=== PATIENT | female | born 1935 | race Caucasian/White ===

== ENCOUNTER 2017-08-20 14:27 | Outpatient (CLI) | payer MEDICAID ==
--- NOTE | 2017-08-21 09:48 | Ultrasound Report ---
ULTRASOUND ABDOMEN COMPLETE: TECHNIQUE: Transabdominal ultrasound with color Doppler interrogation. HISTORY: Right upper quadrant pain, epigastric pain. COMPARISON: Renal ultrasound dated 12/23/14. FINDINGS: LIVER: Normal. BILIARY SYSTEM: There is a large gallstone within the gallbladder measuring up to 3.2 cm in greatest dimension. No evidence for abnormal gallbladder distention, wall thickening or surrounding fluid. The CBD measures 4 mm. PANCREAS: Normal. SPLEEN: Normal. KIDNEYS: The right kidney measures 10.0 cm. The left kidney measures 9.6 cm. Both kidneys are echogenic consistent with nonspecific renal parenchymal disease. There are a few scattered simple appearing renal cysts measuring less than 1 cm in both kidneys. No evidence for mass, calculus or hydronephrosis. These findings are essentially unchanged since the previous renal ultrasound. AORTA/IVC: Normal. ASCITES: None. IMPRESSION: Large gallstone. No evidence for acute cholecystitis. Nonspecific renal parenchymal disease. Scattered subcentimeter simple renal cysts.
== END 2017-08-20 14:28 | disposition home or self-care (01) ==
LOC: US 14:27
PROVIDERS: ATTEND Nurse Practitioner
DX: K80.20 Calculus of gallbladder without cholecystitis without obstruction (principal); N28.1 Cyst of kidney, acquired
CPT/HCPCS: 76700

== ENCOUNTER 2017-09-13 09:41 | Outpatient (CLI) | payer MEDICAID ==
[2017-09-13 10:01] LABS: Hematocrit 27.7 % (30.3-42.9); Hemoglobin 9.2 gm/dl (10.1-14.3); Mean Corpuscular HGB Conc 33 % (30-34); Mean Corpuscular Hemoglobin 30 pg (28-32); Mean Corpuscular Volume 90 fl (79-97); Platelet Count 285 K/mm3 (140-440); Red Blood Count 3.09 M/mm3 (3.65-5.03); Red Cell Distribution Width 15.8 % (13.2-15.2)
[2017-09-13 10:14] LABS: Calcium 8.3 mg/dL (8.4-10.2)
== END 2017-09-13 09:42 | disposition home or self-care (01) ==
LOC: LAB 09:41
PROVIDERS: ATTEND Internal Medicine Nephrology
DX: I13.0 Hypertensive heart and chronic kidney disease with heart failure and stage 1 through stage 4 chronic kidney disease, or unspecified chronic kidney disease (principal); I50.9 Heart failure, unspecified; N18.3 Chronic kidney disease, stage 3 (moderate); E11.22 Type 2 diabetes mellitus with diabetic chronic kidney disease; E78.00 Pure hypercholesterolemia, unspecified; I25.10 Atherosclerotic heart disease of native coronary artery without angina pectoris
CPT/HCPCS: 36415; 80048; 85027

== ENCOUNTER 2017-09-13 12:58 | Inpatient (IN) | payer MEDICAID ==
--- NOTE | 2017-09-13 16:12 | History and Physical Report ---
History of Present Illness Date of admission: 09/13/17 13:40 Chief complaint: My doctor told me to come here History of present illness: 82 YO Female with Anemia, CKD, DM, HTN, HLD, TIA admitted directly at the request of Dr. Sylvester. Pt was seen and evaluated today in Dr. Sylvester's office and was found to have evidence of ESRD and in need of permacath placement for dialysis. Pt medically stable, and does not require urgent dialysis as per Dr. Sylvester. Pt will be seen by vascular service for elective permacath placement in am. Pt seen and evaluated upon arrival. Pt complains of chronic bue/ble swelling. Pt denies fever, chills, CP, Palpitations, NVD, unintentional weigh loss, night sweats, NVD, skin rash, confusion, falls, trauma, or recent ill contacts. No reported nursing events. Pt sitting in chair in NAD. 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 Plan of care discussed with patient and family , who agree with care plan. Past History Past Medical History: anemia, CAD, diabetes, hypertension, hyperlipidemia Past Surgical History: hysterectomy, hernia repair Social history: , lives with family. denies: smoking, alcohol abuse, prescription drug abuse Family history: diabetes, hypertension Medications and Allergies Allergies Allergy/AdvReac Type Severity Reaction Status Date / Time No Known Allergies Allergy Verified 10/10/14 21:27 Home Medications Medication Instructions Recorded Confirmed Last Taken Type Glimepiride [Amaryl] 4 mg PO 0800 08/22/17 09/13/17 08/22/17 09:00 History Aspirin [Aspirin TAB] 325 mg PO QDAY #30 tablet 09/11/17 09/13/17 Unknown Rx Famotidine [Pepcid] 20 mg PO QDAY #30 tablet 09/11/17 09/13/17 Unknown Rx Metoprolol [Lopressor TAB] 12.5 mg PO BID #60 tablet 09/11/17 09/13/17 Unknown Rx Pravastatin [Pravachol] 40 mg PO QHS #30 tablet 09/11/17 09/13/17 Unknown Rx amLODIPine [Norvasc] 10 mg PO QDAY #30 tablet 09/11/17 09/13/17 Unknown Rx hydrALAZINE [Apresoline TAB] 50 mg PO Q8HR #90 tablet 09/11/17 09/13/17 Unknown Rx traMADol [Ultram 50 MG tab] 50 mg PO Q8H PRN #14 tablet 09/11/17 09/13/17 Unknown Rx Review of Systems Constitutional: other (swelling) Ears, nose, mouth and throat: no ear pain, no ear discharge, no tinnitis, no decreased hearing, no nose pain Breasts: no change in shape, no swelling, no mass Cardiovascular: no chest pain, no orthopnea, no palpitations, no rapid/ irregular heart beat, no edema Respiratory: no cough, no cough with sputum, no excessive sputum, no hemoptysis Gastrointestinal: no nausea, no vomiting, no diarrhea, no constipation, no change in bowel habits Genitourinary Female: no pelvic pain, no flank pain, no dysuria Rectal: no pain, no incontinence, no bleeding Musculoskeletal: no neck stiffness, no neck pain, no shooting arm pain, no arm numbness/tingling, no low back pain Integumentary: no rash, no pruritis, no redness, no sores, no wounds, no boils Neurological: no head injury, no transient paralysis, no paralysis, no weakness , no parathesias, no numbness, no tingling, no seizures Psychiatric: no anxiety, no memory loss, no change in sleep habits, no sleep disturbances, no insomnia, no hypersomnia, no change in appetite Endocrine: no cold intolerance, no heat intolerance, no polyphagia, no excessive thirst, no polydipsia, no polyuria Hematologic/Lymphatic: no easy bruising, no easy bleeding, no lymphadenopathy, no lymphedema Allergic/Immunologic: no urticaria, no allergic rhinitis, no wheezing, no persistent infections, no anaphylaxis Exam - Constitutional General appearance: Present: no acute distress, well-nourished - EENT Eyes: Present: PERRL ENT: hearing intact, clear oral mucosa - Neck Neck: Present: supple, normal ROM - Respiratory Respiratory effort: normal Respiratory: bilateral: diminished - Cardiovascular Heart Sounds: Present: S1 & S2. Absent: rub, click - Extremities Extremities: pulses symmetrical, No edema Extremity abnormal: edema Peripheral Pulses: within normal limits - Abdominal General gastrointestinal: Present: soft, non-tender, non-distended, normal bowel sounds Female genitourinary: Present: normal - Integumentary Integumentary: Present: clear, warm, dry - Musculoskeletal Musculoskeletal: gait normal, strength equal bilaterally - Psychiatric Psychiatric: appropriate mood/affect, intact judgment & insight - Neurologic Neurologic: CNII-XII intact, moves all extremities Assessment and Plan - Patient Problems (1) ESRD (end stage renal disease) Current Visit: Yes Status: Acute Plan to address problem: Nephrology consulted. Notify nephrology upon arrival, cbc, cmp, vascular surgery consulted, Permacath placement in AM. (2) Diabetes Current Visit: Yes Status: Acute Plan to address problem: consistent carbohydrate diet, insulin, accu check (3) Metabolic acidosis Current Visit: Yes Status: Acute Plan to address problem: secondary to ESRD, dialysis as per renal team, repeat bmp (4) HTN (hypertension) Current Visit: Yes Status: Acute Qualifiers: Hypertension type: essential hypertension Qualified Code(s): I10 - Essential (primary) hypertension Plan to address problem: monitor bp q shift, resume prehospital medication, hold b breana. (5) DVT prophylaxis Current Visit: Yes Status: Acute Plan to address problem: scd to ble while in bed.
[2017-09-13] MEDS ORDERED: ULTRAM PO PRN (20:42)
[2017-09-13] MEDS ORDERED: D50W (25GM) Syringe IV PRN (20:43)
[2017-09-13 20:59] LABS: Basophils # (Auto) 0.1 K/mm3 (0.0-0.1); Basophils % (Auto) 1.1 % (0.0-1.8); Eosinophils # (Auto) 0.1 K/mm3 (0.0-0.4); Eosinophils % (Auto) 1.5 % (0.0-4.3); Hematocrit 28.5 % (30.3-42.9); Hemoglobin 9.4 gm/dl (10.1-14.3); Lymphocytes # (Auto) 0.7 K/mm3 (1.2-5.4); Lymphocytes % (Auto) 15.2 % (13.4-35.0); Mean Corpuscular HGB Conc 33 % (30-34); Mean Corpuscular Hemoglobin 29 pg (28-32); Mean Corpuscular Volume 89 fl (79-97); Monocytes # (Auto) 0.5 K/mm3 (0.0-0.8); Monocytes % (Auto) 10.1 % (0.0-7.3); Platelet Count 298 K/mm3 (140-440); Red Blood Count 3.19 M/mm3 (3.65-5.03); Red Cell Distribution Width 15.6 % (13.2-15.2)
[2017-09-13 21:07] LABS: INR 0.97 (0.87-1.13)
--- NOTE | 2017-09-13 21:07 | XRay Report ---
FINAL REPORT EXAM: XR CHEST 1V AP HISTORY: dypsnea TECHNIQUE: Upright portable chest PRIORS: None. FINDINGS: Positioning is rotated. There are moderate pleural effusions bilaterally. The right central venous catheter seen previously is been removed. There is no evidence for pneumothorax. Pulmonary vasculature is unremarkable. IMPRESSION: Persistent bilateral moderate effusions not significantly changed. Right IJ catheter is been removed
[2017-09-13 21:22] LABS: Albumin 3.3 g/dL (3.9-5); BUN/Creatinine Ratio 16; Blood Urea Nitrogen 70 mg/dL (7-17); Calcium 8.2 mg/dL (8.4-10.2); Hemolysis Index 7
[2017-09-13 21:27] LABS: Alanine Aminotransferase < 5 units/L (7-56)
[2017-09-13] MEDS: APRESOLINE PO SCH (22:19)
[2017-09-13] MEDS: PRAVACHOL PO SCH (22:19)
[2017-09-14] MEDS: HumaLOG SUB-Q SCH ×3 (00:45→20:58)
[2017-09-14] MEDS: APRESOLINE PO SCH ×2 (05:27→20:58)
[2017-09-14] MEDS ORDERED: VERSED ONE (09:46)
[2017-09-14] MEDS ORDERED: HEPARIN/NS 5000 UNIT/500ML(CATH LAB) 500 ML IR ONE (09:46)
[2017-09-14] MEDS ORDERED: ANCEF/STERILE WATER 2 GM/20 ML 2 GM/20 ML SYRINGE IV ONE (09:47)
[2017-09-14] MEDS ORDERED: XYLOCAINE 2% INFILTRATI ONE (09:47)
[2017-09-14] MEDS ORDERED: SUBLIMAZE ONE (09:47)
[2017-09-14] MEDS ORDERED: NACL 0.9% 250ML 250 ML ONE (09:47)
[2017-09-14] MEDS: HEPARIN 10,000 UNITS/10 ML ONE ×4 (10:18→10:26)
--- NOTE | 2017-09-14 11:18 | Post Operative Note ---
Date of procedure: 09/14/17 Pre-op diagnosis: ESRD Post-op diagnosis: same Findings: patient was asymptomatic but bradycardic prior to procedure patient is asymptomatic and bradycardic after procedure Procedure: Right sided permcath placement Anesthesia: local Surgeon: DANIEL ESPINOSA Estimated blood loss: minimal Condition: stable Disposition: floor
--- NOTE | 2017-09-14 11:18 | Operative Report ---
Operative Report Operative Report: EXAM: 1. Ultrasound-guided puncture of the right internal jugular vein 2. Fluoroscopic-guided placement of a right internal jugular tunneled cuffed hemodialysis catheter. DATE: 09/14/17 INDICATION: End-stage renal disease requiring hemodialysis access MEDICATIONS: Please see nursing report for full details. DEVICES: 27 cm tip to cuff 15 Fr dual lumen hemodialysis catheter CIVIL SERVICE WORKER: DANIEL ESPINOSA MD CONTRAST: None PROCEDURE: The risks, benefits, and alternatives were discussed and informed consent was obtained. The patient was transported to the angiography suite in satisfactory/ stable condition and was transported onto the angiography table. The patient's right internal jugular vein was assessed with ultrasound and determined to be patent prior to procedure. The patient was prepped and draped in a sterile fashion. The puncture site was anesthetized. Under sonographic guidance, the right internal jugular vein was punctured with a 21-gauge micropuncture needle and a 0.018 inch wire was advanced into the inferior vena cava. The micropuncture needle was exchanged for a transitional dilator and the wire was retracted into the right atrium to matilde intravascular distance. The wire and inner dilator were removed. 0.035 inch wire was advanced through the transitional dilator into the inferior vena cava. A suitable exit site was identified on the patient's chest inferior and lateral to the venotomy. The site was anesthetized with local anesthetic and the track was anesthetized. Dermatotomy was made. The PermCath was attached to the tunneling device and tunneled between the dermatotomy to the venotomy. Over the 0.035 inch wire, serial dilatation was performed with ultimate placement of a peel-away sheath. The catheter was advanced through the peel- away sheath after the wire was removed and positioned centrally under fluoroscopic guidance. The peel-away sheath was removed. 4-0 Vicryl suture was used to close the venotomy and Dermabond was then applied. Two, 2-0 Ethilon suture was used to secure the catheter at the dermatotomy. The catheter was charged with heparin 1000 units/mL space. Sterile dressing and Biopatch applied. The patient was transferred from the angiography suite back to the floor in stable condition. FINDINGS: 1. Excellent flow was obtained through the dialysis catheter with 20 mL syringes. 2. The catheter tip is in the right atrium. IMPRESSION: 1. Successful ultrasound and fluoroscopically guided placement of a right internal jugular tunneled cuffed hemodialysis catheter.
[2017-09-14] MEDS ORDERED: NACL 0.9% 100 ML IV PRN (11:56)
[2017-09-14] MEDS ORDERED: ALBURX 25% (ALBUMIN) IV PRN (11:56)
--- NOTE | 2017-09-14 12:00 | Progress Note ---
Assessment and Plan Impression: * ESRD * Uremia * HTN * DM * ANemia in ESRD Plan: * HD today and q mwf * outpatient hd krystin nybenjamin * daily lytes * strict i/os * renal diet * uf as tolerated with hd Subjective Date of service: 09/14/17 Principal diagnosis: esrd Interval history: events noted, no acute issues today Objective - Exam Narrative Exam: Constitutional General appearance: Present: no acute distress, well-nourished - EENT Eyes: Present: PERRL ENT: hearing intact, clear oral mucosa - Neck Neck: Present: supple, normal ROM - Respiratory Respiratory effort: normal Respiratory: bilateral: diminished - Cardiovascular Heart Sounds: Present: S1 & S2. Absent: rub, click - Extremities Extremities: pulses symmetrical, No edema Extremity abnormal: edema Peripheral Pulses: within normal limits - Abdominal General gastrointestinal: Present: soft, non-tender, non-distended, normal bowel sounds Female genitourinary: Present: normal - Integumentary Integumentary: Present: clear, warm, dry - Musculoskeletal Musculoskeletal: gait normal, strength equal bilaterally - Psychiatric Psychiatric: appropriate mood/affect, intact judgment & insight - Neurologic Neurologic: CNII-XII intact, moves all extremities - Vital Signs Vital signs: Vital Signs - 12hr 09/14/17 09/14/17 09/14/17 00:00 00:36 04:22 Temperature 98.2 F Pulse Rate 42 L 43 L 42 L Respiratory 20 Rate Blood Pressure 131/57 Blood Pressure 152/59 [Left] O2 Sat by Pulse 98 97 Oximetry 09/14/17 09/14/17 05:13 07:42 Temperature 97.6 F 97.6 F Pulse Rate 42 L 44 L Respiratory 18 18 Rate Blood Pressure Blood Pressure 131/57 137/56 [Left] O2 Sat by Pulse 97 97 Oximetry - Lab 09/13/17 20:38 09/13/17 20:42 Most recent lab results Calcium 8.2 mg/dL (8.4-10.2) L 09/13/17 20:42
[2017-09-14 13:56] LABS: Hepatitis A Antibody IgM Non-Reactive (NonReactive); Hepatitis B Core IgM Non-Reactive (NonReactive); Hepatitis B Surface Antigen Non-Reactive (Negative); Hepatitis C Virus Antibody Non-Reactive (NonReactive)
--- NOTE | 2017-09-14 14:25 | Consultation ---
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 She is right-handed. She will require hemodialysis and is not a candidate for peritoneal dialysis to her advanced age. Past History Past Medical History: anemia, CAD, diabetes, hypertension, hyperlipidemia Past Surgical History: hysterectomy, hernia repair Social history: , lives with family. denies: smoking, alcohol abuse, prescription drug abuse Family history: diabetes, hypertension Medications and Allergies Allergies Allergy/AdvReac Type Severity Reaction Status Date / Time No Known Allergies Allergy Verified 10/10/14 21:27 Home Medications Medication Instructions Recorded Confirmed Last Taken Type Glimepiride [Amaryl] 4 mg PO 0800 08/22/17 09/13/17 08/22/17 09:00 History Aspirin [Aspirin TAB] 325 mg PO QDAY #30 tablet 09/11/17 09/13/17 Unknown Rx Famotidine [Pepcid] 20 mg PO QDAY #30 tablet 09/11/17 09/13/17 Unknown Rx Metoprolol [Lopressor TAB] 12.5 mg PO BID #60 tablet 09/11/17 09/13/17 Unknown Rx Pravastatin [Pravachol] 40 mg PO QHS #30 tablet 09/11/17 09/13/17 Unknown Rx amLODIPine [Norvasc] 10 mg PO QDAY #30 tablet 09/11/17 09/13/17 Unknown Rx hydrALAZINE [Apresoline TAB] 50 mg PO Q8HR #90 tablet 09/11/17 09/13/17 Unknown Rx traMADol [Ultram 50 MG tab] 50 mg PO Q8H PRN #14 tablet 09/11/17 09/13/17 Unknown Rx Active Meds: Active Medications Albumin Human (Alburx 25% (Albumin)) 25 gm IV MICHELE PRN PRN Reason: Hypotension Amlodipine Besylate (Norvasc) 10 mg PO QDAY DARSHANA Aspirin (Aspirin) 325 mg PO QDAY [facility] Dextrose (D50w (25gm) Syringe) 50 ml IV PRN PRN PRN Reason: Hypoglycemia Epoetin Abdirahman (Procrit) 10,000 unit IV MICHELE PRN PRN Reason: hemodialysis Famotidine (Pepcid) 20 mg PO QDAY [facility] Heparin Sodium (Porcine) (Heparin) 5,000 unit IV MICHELE PRN PRN Reason: hemodialysis Hydralazine HCl (Apresoline) 50 mg PO Q8HR [facility] Last Admin: 09/14/17 05:27 Dose: 50 mg Sodium Chloride (Nacl 0.9%) 100 mls @ 999 mls/hr IV IMCHELE PRN PRN Reason: Hypotension Insulin Human Lispro (Humalog) 0 unit SUB-Q Q6HR [facility]; Protocol Last Admin: 09/14/17 07:11 Dose: Not Given Pravastatin Sodium (Pravachol) 40 mg PO QHS [facility] Last Admin: 09/13/17 22:19 Dose: 40 mg Tramadol HCl (Ultram) 50 mg PO Q8H PRN PRN Reason: Pain, Moderate (4-6) Review of Systems All systems: negative (see HPI ; discussed with family at bedside) Exam - Constitutional Vitals: Temp Pulse Resp BP Pulse Ox 97.8 F 43 L 20 140/54 93 09/14/17 11:06 09/14/17 11:07 09/14/17 12:23 09/14/17 11:06 09/14/17 11:07 General appearance: Present: no acute distress, other (sleeping) - EENT Eyes: Present: EOM intact ENT: hearing intact - Respiratory Respiratory effort: normal - Cardiovascular Rhythm: other (bradycardia) - Psychiatric Psychiatric: other (sleeping) Results - Labs CBC & Chem 7: 09/13/17 20:38 09/13/17 20:42 Labs: Abnormal lab results 09/13/17 09/13/17 09/13/17 Range/Units 16:40 20:38 20:42 RBC 3.19 L (3.65-5.03) M/mm3 Hgb 9.4 L (10.1-14.3) gm/dl Hct 28.5 L (30.3-42.9) % RDW 15.6 H (13.2-15.2) % [place] % (Auto) 10.1 H (0.0-7.3) % Lymph # 0.7 L (1.2-5.4) K/mm3 Seg Neutrophils % 72.1 H (40.0-70.0) % Sodium 131 L (137-145) mmol/L Chloride 95.6 L (98-107) mmol/L Carbon Dioxide 19 L (22-30) mmol/L BUN 70 H (7-17) mg/dL Creatinine 4.5 H (0.7-1.2) mg/dL Glucose 183 H (65-100) mg/dL POC Glucose 169 H (70-105) Calcium 8.2 L (8.4-10.2) mg/dL ALT < 5 L (7-56) units/L Albumin 3.3 L (3.9-5) g/dL 09/13/17 09/14/17 09/14/17 Range/Units 21:22 00:15 06:56 RBC (3.65-5.03) M/mm3 Hgb (10.1-14.3) gm/dl Hct (30.3-42.9) % RDW (13.2-15.2) % [place] % (Auto) (0.0-7.3) % Lymph # (1.2-5.4) K/mm3 Seg Neutrophils % (40.0-70.0) % Sodium (137-145) mmol/L Chloride (98-107) mmol/L Carbon Dioxide (22-30) mmol/L BUN (7-17) mg/dL Creatinine (0.7-1.2) mg/dL Glucose (65-100) mg/dL POC Glucose 180 H 169 H 119 H (70-105) Calcium (8.4-10.2) mg/dL ALT (7-56) units/L Albumin (3.9-5) g/dL Assessment and Plan 82-year-old female who was previously seen by vascular surgery for 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 Discussed with the family that due to her advanced age would probably recommend a graft over a fistula. Discussed vein mapping with the family. Patient will require PermCath placement. Risks, benefits, and alternatives discussed with the family, especially the patient's daughter who is making most of her medical decisions for her. Plan for vein mapping, and PermCath placement. Can follow-up as outpatient with [facility].
[2017-09-14] MEDS ORDERED: NACL 0.9 (PRIMING MACHINE ONLY DIALYSIS) MC ONE (18:08)
[2017-09-14] MEDS: PROCRIT IV PRN (18:45)
[2017-09-14] MEDS: HEPARIN IV PRN (19:37)
[2017-09-14] MEDS: PRAVACHOL PO SCH (21:51)
[2017-09-14] MEDS: PEPCID PO SCH (21:52)
[2017-09-14] MEDS: NORVASC PO SCH (21:52)
[2017-09-14] MEDS: ASPIRIN PO SCH (21:56)
--- NOTE | 2017-09-14 22:47 | Progress Note ---
Assessment and Plan Assessment and plan: 82 YO Female with Anemia, CKD, DM, HTN, HLD, TIA admitted directly at the request of Dr. Sylvester. Pt was seen and evaluated today in Dr. Sylvester's office and was found to have evidence of ESRD and in need of permacath placement for dialysis. Pt medically stable, and does not require urgent dialysis as per Dr. Sylvester. Pt will be seen by vascular service for elective permacath placement in am. Pt seen and evaluated upon arrival. Pt complains of chronic bue/ble swelling. Pt denies fever, chills, CP, Palpitations, NVD, unintentional weigh loss, night sweats, NVD, skin rash, confusion, falls, trauma, or recent ill contacts. No reported nursing events. Pt sitting in chair in NAD. 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 Plan of care discussed with patient and family , who agree with care plan. (1) ESRD (end stage renal disease) Current Visit: Yes Status: Acute Plan to address problem: Nephrology consulted. Notify nephrology upon arrival, cbc, cmp, vascular surgery consulted, Permacath placement in AM. Vein Maping for am. (2) Diabetes Current Visit: Yes Status: Acute Plan to address problem: consistent carbohydrate diet, insulin, accu check (3) Metabolic acidosis Current Visit: Yes Status: Acute Plan to address problem: secondary to ESRD, dialysis as per renal team, repeat bmp (4) HTN (hypertension) Current Visit: Yes Status: Acute Qualifiers: Hypertension type: essential hypertension Qualified Code(s): I10 - Essential (primary) hypertension Plan to address problem: monitor bp q shift, resume prehospital medication, hold b breana. (5) DVT prophylaxis Current Visit: Yes Status: Acute Plan to address problem: scd to ble while in bed. History Interval history: Patient seen and examined in no acute distress. family at bedside. Hospitalist Physical - Physical exam Narrative exam: - Constitutional General appearance: Present: no acute distress, well-nourished - EENT Eyes: Present: PERRL ENT: hearing intact, clear oral mucosa - Neck Neck: Present: supple, normal ROM - Respiratory Respiratory effort: normal Respiratory: bilateral: diminished - Cardiovascular Heart Sounds: Present: S1 & S2. Absent: rub, click - Extremities Extremities: pulses symmetrical, No edema Extremity abnormal: edema-Right > Left Peripheral Pulses: within normal limits - Abdominal General gastrointestinal: Present: soft, non-tender, non-distended, normal bowel sounds Female genitourinary: Present: normal - Integumentary Integumentary: Present: clear, warm, dry - Musculoskeletal Musculoskeletal: gait normal, strength equal bilaterally - Psychiatric Psychiatric: appropriate mood/affect, intact judgment & insight - Neurologic Neurologic: CNII-XII intact, moves all extremities - Constitutional Vitals: Temp Pulse Resp BP Pulse Ox 98.0 F 55 L 20 154/51 94 09/14/17 19:15 09/14/17 21:07 09/14/17 21:07 09/14/17 21:07 09/14/17 21:07 General appearance: Present: no acute distress, other (sleeping) Results - Labs CBC & Chem 7: 09/13/17 20:38 09/13/17 20:42 Labs: Laboratory Last Values WBC 4.5 K/mm3 (4.5-11.0) 09/13/17 20:38 RBC 3.19 M/mm3 (3.65-5.03) L 09/13/17 20:38 Hgb 9.4 gm/dl (10.1-14.3) L 09/13/17 20:38 Hct 28.5 % (30.3-42.9) L 09/13/17 20:38 MCV 89 fl (79-97) 09/13/17 20:38 MCH 29 pg (28-32) 09/13/17 20:38 MCHC 33 % (30-34) 09/13/17 20:38 RDW 15.6 % (13.2-15.2) H 09/13/17 20:38 Plt Count 298 K/mm3 (140-440) 09/13/17 20:38 Lymph % (Auto) 15.2 % (13.4-35.0) 09/13/17 20:38 [place] % (Auto) 10.1 % (0.0-7.3) H 09/13/17 20:38 Eos % (Auto) 1.5 % (0.0-4.3) 09/13/17 20:38 Baso % (Auto) 1.1 % (0.0-1.8) 09/13/17 20:38 Lymph # 0.7 K/mm3 (1.2-5.4) L 09/13/17 20:38 [place] # 0.5 K/mm3 (0.0-0.8) 09/13/17 20:38 Eos # 0.1 K/mm3 (0.0-0.4) 09/13/17 20:38 Baso # 0.1 K/mm3 (0.0-0.1) 09/13/17 20:38 Seg Neutrophils % 72.1 % (40.0-70.0) H 09/13/17 20:38 Seg Neutrophils # 3.3 K/mm3 (1.8-7.7) 09/13/17 20:38 PT 13.4 Sec. (12.2-14.9) 09/13/17 20:42 INR 0.97 (0.87-1.13) 09/13/17 20:42 Sodium 131 mmol/L (137-145) L 09/13/17 20:42 Potassium 4.6 mmol/L (3.6-5.0) 09/13/17 20:42 Chloride 95.6 mmol/L (98-107) L 09/13/17 20:42 Carbon Dioxide 19 mmol/L (22-30) L 09/13/17 20:42 Anion Gap 21 mmol/L 09/13/17 20:42 BUN 70 mg/dL (7-17) H 09/13/17 20:42 Creatinine 4.5 mg/dL (0.7-1.2) H 09/13/17 20:42 Estimated GFR 9 ml/min 09/13/17 20:42 BUN/Creatinine Ratio 16 % 09/13/17 20:42 Glucose 183 mg/dL (65-100) H 09/13/17 20:42 POC Glucose 154 (70-105) H 09/14/17 22:30 Calcium 8.2 mg/dL (8.4-10.2) L 09/13/17 20:42 Total Bilirubin 0.30 mg/dL (0.1-1.2) 09/13/17 20:42 AST 20 units/L (5-40) 09/13/17 20:42 ALT < 5 units/L (7-56) L 09/13/17 20:42 Alkaline Phosphatase 78 units/L (35-129) 09/13/17 20:42 Total Protein 6.4 g/dL (6.3-8.2) 09/13/17 20:42 Albumin 3.3 g/dL (3.9-5) L 09/13/17 20:42 Albumin/Globulin Ratio 1.1 % 09/13/17 20:42 Hepatitis A IgM Ab Non-reactive (NonReactive) 09/14/17 12:39 Hep Bs Antigen Non-reactive (Negative) 09/14/17 12:39 Hep B Core IgM Ab Non-reactive (NonReactive) 09/14/17 12:39 Hepatitis C Antibody Non-reactive (NonReactive) 09/14/17 12:39
[2017-09-15] MEDS: APRESOLINE PO SCH ×4 (00:57→22:03)
[2017-09-15] MEDS: HumaLOG SUB-Q SCH ×3 (00:57→20:57)
[2017-09-15 06:55] LABS: Hematocrit 24.3 % (30.3-42.9); Hemoglobin 8.2 gm/dl (10.1-14.3); Mean Corpuscular HGB Conc 34 % (30-34); Mean Corpuscular Hemoglobin 30 pg (28-32); Mean Corpuscular Volume 88 fl (79-97); Platelet Count 214 K/mm3 (140-440); Red Blood Count 2.76 M/mm3 (3.65-5.03); Red Cell Distribution Width 15.1 % (13.2-15.2)
[2017-09-15 07:09] LABS: Calcium 7.8 mg/dL (8.4-10.2)
--- NOTE | 2017-09-15 08:34 | Progress Note ---
Assessment and Plan Impression: * ESRD * Uremia * HTN * DM * ANemia in ESRD Plan: * HD today and q mwf * outpatient hd joryangelica kaylynn * daily lytes * strict i/os * renal diet * uf as tolerated with hd Subjective Date of service: 09/15/17 Principal diagnosis: esrd Interval history: events noted, no acute issues today Objective - Exam Narrative Exam: Constitutional General appearance: Present: no acute distress, well-nourished - EENT Eyes: Present: PERRL ENT: hearing intact, clear oral mucosa - Neck Neck: Present: supple, normal ROM - Respiratory Respiratory effort: normal Respiratory: bilateral: diminished - Cardiovascular Heart Sounds: Present: S1 & S2. Absent: rub, click - Extremities Extremities: pulses symmetrical, No edema Extremity abnormal: edema Peripheral Pulses: within normal limits - Abdominal General gastrointestinal: Present: soft, non-tender, non-distended, normal bowel sounds Female genitourinary: Present: normal - Integumentary Integumentary: Present: clear, warm, dry - Musculoskeletal Musculoskeletal: gait normal, strength equal bilaterally - Psychiatric Psychiatric: appropriate mood/affect, intact judgment & insight - Neurologic Neurologic: CNII-XII intact, moves all extremities - Vital Signs Vital signs: Vital Signs - 12hr 09/14/17 09/14/17 09/15/17 21:07 22:00 00:00 Pulse Rate 55 L 57 L Respiratory 20 18 Rate Blood Pressure 154/51 O2 Sat by Pulse 94 Oximetry 09/15/17 09/15/17 00:44 04:57 Pulse Rate 51 L 50 L Respiratory 20 20 Rate Blood Pressure 139/51 146/50 O2 Sat by Pulse 90 93 Oximetry - Lab 09/15/17 05:37 09/15/17 05:43 Most recent lab results Calcium 7.8 mg/dL (8.4-10.2) L 09/15/17 05:43
[2017-09-15] MEDS: ASPIRIN PO SCH (09:54)
[2017-09-15] MEDS: NORVASC PO SCH (09:54)
[2017-09-15] MEDS: PEPCID PO SCH (09:55)
--- NOTE | 2017-09-15 12:32 | Progress Note ---
Assessment and Plan - Patient Problems (1) Diabetes Current Visit: Yes Status: Acute Qualifiers: Diabetes mellitus type: type 1 Diabetic retinopathy severity: with mild nonproliferative retinopathy Plan to address problem: Maintains adequate control of blood glucose Accu-Cheks 98-169 stable (2) ESRD (end stage renal disease) Current Visit: Yes Status: Acute Plan to address problem: Is stage renal disease patient will require hemodialysis. Unable to place a permacath today. Spoke to nephrology Dr. Louis and no untoward events identified the size of the clot. Patient will receive hemodialysis will make attempts at TPA for correction of occlusion. (3) HTN (hypertension) Current Visit: Yes Status: Acute Qualifiers: Hypertension type: essential hypertension Qualified Code(s): I10 - Essential (primary) hypertension Plan to address problem: At present fairly well controlled with amlodipine. Continue present management. (4) Acute kidney injury superimposed on CKD Current Visit: No Status: Acute (5) Anemia Current Visit: No Status: Acute Plan to address problem: Anemia of chronic disease. (6) HTN (hypertension) Current Visit: No Status: Chronic Qualifiers: Hypertension type: essential hypertension Qualified Code(s): I10 - Essential (primary) hypertension History Interval history: Patient family at bedside and all questions and concerns answered. Hospital course complicated by an acute DVT and hematoma right arm. This was identified during venous mapping. Pain and discomfort well controlled. Hospitalist Physical - Constitutional Vitals: Temp Pulse Resp BP Pulse Ox 98.7 F 54 L 20 136/52 93 09/15/17 07:56 09/15/17 09:54 09/15/17 07:56 09/15/17 09:54 09/15/17 07:56 General appearance: Present: no acute distress, other (sleeping) - EENT Eyes: Present: PERRL, EOM intact - Neck Neck: Present: supple, normal ROM - Respiratory Respiratory: bilateral: CTA - Cardiovascular Rhythm: regular Heart Sounds: Present: S1 & S2 - Extremities Extremities: Full ROM Extremity abnormal: edema, pulses diminished, other (edema right arm swelling hematoma right arm) Peripheral Pulses: within normal limits - Abdominal General gastrointestinal: soft, non-tender, non-distended - Psychiatric Psychiatric: appropriate mood/affect, cooperative - Neurologic Neurologic: CNII-XII intact Results - Labs CBC & Chem 7: 09/15/17 05:37 09/15/17 05:43 Labs: Laboratory Last Values WBC 4.5 K/mm3 (4.5-11.0) 09/15/17 05:37 RBC 2.76 M/mm3 (3.65-5.03) L 09/15/17 05:37 Hgb 8.2 gm/dl (10.1-14.3) L 09/15/17 05:37 Hct 24.3 % (30.3-42.9) L 09/15/17 05:37 MCV 88 fl (79-97) 09/15/17 05:37 MCH 30 pg (28-32) 09/15/17 05:37 MCHC 34 % (30-34) 09/15/17 05:37 RDW 15.1 % (13.2-15.2) 09/15/17 05:37 Plt Count 214 K/mm3 (140-440) 09/15/17 05:37 Lymph % (Auto) 15.2 % (13.4-35.0) 09/13/17 20:38 [place] % (Auto) 10.1 % (0.0-7.3) H 09/13/17 20:38 Eos % (Auto) 1.5 % (0.0-4.3) 09/13/17 20:38 Baso % (Auto) 1.1 % (0.0-1.8) 09/13/17 20:38 Lymph # 0.7 K/mm3 (1.2-5.4) L 09/13/17 20:38 [place] # 0.5 K/mm3 (0.0-0.8) 09/13/17 20:38 Eos # 0.1 K/mm3 (0.0-0.4) 09/13/17 20:38 Baso # 0.1 K/mm3 (0.0-0.1) 09/13/17 20:38 Seg Neutrophils % 72.1 % (40.0-70.0) H 09/13/17 20:38 Seg Neutrophils # 3.3 K/mm3 (1.8-7.7) 09/13/17 20:38 PT 13.4 Sec. (12.2-14.9) 09/13/17 20:42 INR 0.97 (0.87-1.13) 09/13/17 20:42 Sodium 131 mmol/L (137-145) L 09/15/17 05:43 Potassium 3.6 mmol/L (3.6-5.0) D 09/15/17 05:43 Chloride 97.0 mmol/L (98-107) L 09/15/17 05:43 Carbon Dioxide 24 mmol/L (22-30) 09/15/17 05:43 Anion Gap 14 mmol/L 09/15/17 05:43 BUN 34 mg/dL (7-17) H 09/15/17 05:43 Creatinine 3.0 mg/dL (0.7-1.2) H 09/15/17 05:43 Estimated GFR 15 ml/min 09/15/17 05:43 BUN/Creatinine Ratio 11 % 09/15/17 05:43 Glucose 116 mg/dL (65-100) H 09/15/17 05:43 POC Glucose 117 (70-105) H 09/15/17 06:33 Calcium 7.8 mg/dL (8.4-10.2) L 09/15/17 05:43 Total Bilirubin 0.30 mg/dL (0.1-1.2) 09/13/17 20:42 AST 20 units/L (5-40) 09/13/17 20:42 ALT < 5 units/L (7-56) L 09/13/17 20:42 Alkaline Phosphatase 78 units/L (35-129) 09/13/17 20:42 Total Protein 6.4 g/dL (6.3-8.2) 09/13/17 20:42 Albumin 3.3 g/dL (3.9-5) L 09/13/17 20:42 Albumin/Globulin Ratio 1.1 % 09/13/17 20:42 Hepatitis A IgM Ab Non-reactive (NonReactive) 09/14/17 12:39 Hep Bs Antigen Non-reactive (Negative) 09/14/17 12:39 Hep B Core IgM Ab Non-reactive (NonReactive) 09/14/17 12:39 Hepatitis C Antibody Non-reactive (NonReactive) 09/14/17 12:39
[2017-09-15] MEDS ORDERED: NACL 0.9 (PRIMING MACHINE ONLY DIALYSIS) MC ONE (15:43)
[2017-09-15] MEDS: HEPARIN IV PRN (16:21)
[2017-09-15] MEDS: PROCRIT IV PRN (16:22)
[2017-09-15] MEDS: PRAVACHOL PO SCH (22:03)
[2017-09-16] MEDS: HumaLOG SUB-Q SCH ×4 (01:17→18:39)
[2017-09-16] MEDS: APRESOLINE PO SCH ×3 (05:30→22:22)
[2017-09-16] MEDS: ASPIRIN PO SCH (10:58)
[2017-09-16] MEDS: NORVASC PO SCH (10:59)
[2017-09-16] MEDS: PEPCID PO SCH (10:59)
--- NOTE | 2017-09-16 15:00 | Progress Note ---
Assessment and Plan - Patient Problems (1) Diabetes Current Visit: Yes Status: Acute Qualifiers: Diabetes mellitus type: type 1 Diabetic retinopathy severity: with mild nonproliferative retinopathy Plan to address problem: At present blood sugar remains adequately controlled. Only received 3 units sliding scale for the past 24 hours (2) ESRD (end stage renal disease) Current Visit: Yes Status: Acute Plan to address problem: Is stage renal disease patient will require hemodialysis. Unable to place a permacath today. Spoke to nephrology Dr. Louis and no untoward events identified the size of the clot. Patient will receive hemodialysis will make attempts at TPA for correction of occlusion. Patient is scheduled for dialysis tomorrow her current access is functional.May be abler to go after dialysis tomorrow depending on what vascular plan is with her access (3) HTN (hypertension) Current Visit: Yes Status: Acute Qualifiers: Hypertension type: essential hypertension Qualified Code(s): I10 - Essential (primary) hypertension Plan to address problem: At present fairly well controlled with amlodipine. Continue present management. (4) Acute kidney injury superimposed on CKD Current Visit: No Status: Acute (5) Anemia Current Visit: No Status: Acute Plan to address problem: GERD to chronic disease stable. (6) HTN (hypertension) Current Visit: No Status: Chronic Qualifiers: Hypertension type: essential hypertension Qualified Code(s): I10 - Essential (primary) hypertension History Interval history: Patient in bed resting comfortably today no need for dialysis today. Patient's pain control family at bedside all questions and concerns answered to family satisfaction Hospitalist Physical - Constitutional Vitals: Temp Pulse Resp BP Pulse Ox 97.8 F 60 20 161/54 94 09/16/17 07:52 09/16/17 07:52 09/16/17 07:52 09/16/17 07:52 09/16/17 07:52 General appearance: Present: no acute distress, other (sleeping) - EENT Eyes: Present: PERRL, EOM intact. Absent: scleral icterus ENT: hearing intact, clear oral mucosa, dentition normal, no oropharyngeal erythema, no poor dentition, no thrush, no edentulous - Neck Neck: Present: supple, normal ROM. Absent: enlarged thyroid, masses or JVD - Respiratory Respiratory effort: normal Respiratory: bilateral: CTA - Cardiovascular Rhythm: regular Heart Sounds: Present: S1 & S2 - Extremities Extremities: no ischemia, pulses intact, pulses symmetrical, Full ROM Extremity abnormal: other (right arm swelling hematoma.) Peripheral Pulses: within normal limits - Abdominal General gastrointestinal: soft, non-tender, non-distended, normal bowel sounds - Psychiatric Psychiatric: appropriate mood/affect, intact judgment & insight - Neurologic Neurologic: CNII-XII intact, moves all extremities Results - Labs CBC & Chem 7: 09/15/17 05:37 09/15/17 05:43 Labs: Laboratory Last Values WBC 4.5 K/mm3 (4.5-11.0) 09/15/17 05:37 RBC 2.76 M/mm3 (3.65-5.03) L 09/15/17 05:37 Hgb 8.2 gm/dl (10.1-14.3) L 09/15/17 05:37 Hct 24.3 % (30.3-42.9) L 09/15/17 05:37 MCV 88 fl (79-97) 09/15/17 05:37 MCH 30 pg (28-32) 09/15/17 05:37 MCHC 34 % (30-34) 09/15/17 05:37 RDW 15.1 % (13.2-15.2) 09/15/17 05:37 Plt Count 214 K/mm3 (140-440) 09/15/17 05:37 Lymph % (Auto) 15.2 % (13.4-35.0) 09/13/17 20:38 [place] % (Auto) 10.1 % (0.0-7.3) H 09/13/17 20:38 Eos % (Auto) 1.5 % (0.0-4.3) 09/13/17 20:38 Baso % (Auto) 1.1 % (0.0-1.8) 09/13/17 20:38 Lymph # 0.7 K/mm3 (1.2-5.4) L 09/13/17 20:38 [place] # 0.5 K/mm3 (0.0-0.8) 09/13/17 20:38 Eos # 0.1 K/mm3 (0.0-0.4) 09/13/17 20:38 Baso # 0.1 K/mm3 (0.0-0.1) 09/13/17 20:38 Seg Neutrophils % 72.1 % (40.0-70.0) H 09/13/17 20:38 Seg Neutrophils # 3.3 K/mm3 (1.8-7.7) 09/13/17 20:38 PT 13.4 Sec. (12.2-14.9) 09/13/17 20:42 INR 0.97 (0.87-1.13) 09/13/17 20:42 Sodium 131 mmol/L (137-145) L 09/15/17 05:43 Potassium 3.6 mmol/L (3.6-5.0) D 09/15/17 05:43 Chloride 97.0 mmol/L (98-107) L 09/15/17 05:43 Carbon Dioxide 24 mmol/L (22-30) 09/15/17 05:43 Anion Gap 14 mmol/L 09/15/17 05:43 BUN 34 mg/dL (7-17) H 09/15/17 05:43 Creatinine 3.0 mg/dL (0.7-1.2) H 09/15/17 05:43 Estimated GFR 15 ml/min 09/15/17 05:43 BUN/Creatinine Ratio 11 % 09/15/17 05:43 Glucose 116 mg/dL (65-100) H 09/15/17 05:43 POC Glucose 202 (70-105) H 09/16/17 11:07 Calcium 7.8 mg/dL (8.4-10.2) L 09/15/17 05:43 Total Bilirubin 0.30 mg/dL (0.1-1.2) 09/13/17 20:42 AST 20 units/L (5-40) 09/13/17 20:42 ALT < 5 units/L (7-56) L 09/13/17 20:42 Alkaline Phosphatase 78 units/L (35-129) 09/13/17 20:42 Total Protein 6.4 g/dL (6.3-8.2) 09/13/17 20:42 Albumin 3.3 g/dL (3.9-5) L 09/13/17 20:42 Albumin/Globulin Ratio 1.1 % 09/13/17 20:42 Hepatitis A IgM Ab Non-reactive (NonReactive) 09/14/17 12:39 Hep Bs Antigen Non-reactive (Negative) 09/14/17 12:39 Hep B Core IgM Ab Non-reactive (NonReactive) 09/14/17 12:39 Hepatitis C Antibody Non-reactive (NonReactive) 09/14/17 12:39
[2017-09-16] MEDS: PRAVACHOL PO SCH (22:22)
[2017-09-17] MEDS: HumaLOG SUB-Q SCH ×3 (02:03→13:00)
[2017-09-17] MEDS: APRESOLINE PO SCH ×4 (06:09→23:49)
--- NOTE | 2017-09-17 09:27 | Progress Note ---
Assessment and Plan Impression: * ESRD * Uremia * HTN * DM * ANemia in ESRD Plan: * HD today and q mwf * outpatient hd joryangelica kaylynn * daily lytes * strict i/os * renal diet * uf as tolerated with hd Subjective Date of service: 09/17/17 Principal diagnosis: esrd Interval history: events noted, no acute issues today Objective - Exam Narrative Exam: Constitutional General appearance: Present: no acute distress, well-nourished - EENT Eyes: Present: PERRL ENT: hearing intact, clear oral mucosa - Neck Neck: Present: supple, normal ROM - Respiratory Respiratory effort: normal Respiratory: bilateral: diminished - Cardiovascular Heart Sounds: Present: S1 & S2. Absent: rub, click - Extremities Extremities: pulses symmetrical, No edema Extremity abnormal: edema Peripheral Pulses: within normal limits - Abdominal General gastrointestinal: Present: soft, non-tender, non-distended, normal bowel sounds Female genitourinary: Present: normal - Integumentary Integumentary: Present: clear, warm, dry - Musculoskeletal Musculoskeletal: gait normal, strength equal bilaterally - Psychiatric Psychiatric: appropriate mood/affect, intact judgment & insight - Neurologic Neurologic: CNII-XII intact, moves all extremities - Vital Signs Vital signs: Vital Signs - 12hr 09/16/17 09/17/17 09/17/17 22:22 00:51 05:46 Temperature 98.4 F 98.3 F Pulse Rate 58 L 62 64 Respiratory 18 18 Rate Blood Pressure 155/54 162/61 156/58 O2 Sat by Pulse 92 94 Oximetry 09/17/17 09/17/17 06:09 07:50 Temperature 97.4 F L Pulse Rate 68 65 Respiratory 18 Rate Blood Pressure 156/58 169/61 O2 Sat by Pulse 89 Oximetry - Lab 09/15/17 05:37 09/15/17 05:43 Most recent lab results Calcium 7.8 mg/dL (8.4-10.2) L 09/15/17 05:43
[2017-09-17] MEDS ORDERED: HYDROMET PO PRN (11:59)
[2017-09-17] MEDS ORDERED: NACL 0.9 (PRIMING MACHINE ONLY DIALYSIS) MC ONE (13:43)
--- NOTE | 2017-09-17 15:10 | Discharge Summary ---
Providers - Providers Date of Admission: 09/13/17 13:40 Attending physician: TREVOR SIFUENTES MD 09/13/17 13:13 Consult to Physician [CONS] Routine Comment: Consulting Provider: ERASTO KEITA Physician Instructions: PLEASE CALL VASCULAR PHYSICIAN VU. Reason For Exam: PERMACATH / DIALYSIS ACCESS 09/13/17 13:28 Consult to Physician [CONS] Routine Comment: Consulting Provider: CHRISTAL SYLVESTER Physician Instructions: NOTIFY DR. SYLVESTER UPON PT. ARRIVAL RE: ORDERS Reason For Exam: ACUTE ON CHRONIC RENAL FAILURE 09/14/17 12:00 Consult to Case Management [CONS] Routine Services Needed at Discharge: Other Notified:: case management Additional Physician Instructions: krystin chaidez outpaitent hd placement Primary care physician: SAIRA ONOFRE Hospitalization Reason for admission: end-stage renal disease Hospital course: 82 YO Female with Anemia, CKD, DM, HTN, HLD, TIA admitted directly at the request of Dr. Sylvester. Pt was seen and evaluated today in Dr. Sylvester's office and was found to have evidence of ESRD and in need of permacath placement for dialysis. Pt medically stable, and does not require urgent dialysis as per Dr. Sylvester. Pt will be seen by vascular service for elective permacath placement in am. Pt seen and evaluated upon arrival. Pt complains of chronic bue/ble swelling. Pt denies fever, chills, CP, Palpitations, NVD, unintentional weigh loss, night sweats, NVD, skin rash, confusion, falls, trauma, or recent ill contacts. No reported nursing events. Pt sitting in chair in NAD. Pt family at bedside, and serve as compliance mgr. Plan of care discussed with patient and family , who agree with care plan. Patient had a permacath placed and was started on Dialysis. Patient was noted to have Proximal IJV Thrombus which was discussed with vascular and they recommended against anticoagulation She was started on dialysis and a chair time was obtained. The patient will follow with Neprologist and Vascular. the later for vein mapping. Diabetic diet fluid restrictions were discussed once again in detail. Discharge Diagnosis (1) Diabetes (2) ESRD (end stage renal disease) (3) HTN (hypertension) (4) Acute kidney injury superimposed on CKD (5) Anemia (6) HTN (hypertension) Disposition: [id number]/[place]-06 HOME UNDER [facility] Time spent for discharge: 35 mins Core Measure Documentation - Palliative Care Palliative Care/ Comfort Measures: Not Applicable - Core Measures Any of the following diagnoses?: none - VTE Discharge Requirements Deep Vein Thrombosis/Pulmonary Embolism Present on Admission: No Exam - Physical Exam Narrative exam: - Constitutional General appearance: Present: no acute distress, well-nourished - EENT Eyes: Present: PERRL ENT: hearing intact, clear oral mucosa - Neck Neck: Present: supple, normal ROM - Respiratory Respiratory effort: normal Respiratory: bilateral: diminished - Cardiovascular Heart Sounds: Present: S1 & S2. Absent: rub, click - Extremities Extremities: pulses symmetrical, No edema Extremity abnormal: edema-Right > Left Peripheral Pulses: within normal limits - Abdominal General gastrointestinal: Present: soft, non-tender, non-distended, normal bowel sounds Female genitourinary: Present: normal - Integumentary Integumentary: Present: clear, warm, dry - Musculoskeletal Musculoskeletal: gait normal, strength equal bilaterally. Permacath to right chest wall area. - Psychiatric Psychiatric: appropriate mood/affect, intact judgment & insight - Neurologic Neurologic: CNII-XII intact, moves all extremities - Constitutional Vitals: Temp Pulse Resp BP Pulse Ox 98.2 F 58 L 18 163/70 95 09/17/17 10:30 09/17/17 12:00 09/17/17 10:30 09/17/17 11:45 09/17/17 10:00 Plan Activity: advance as tolerated Diet: diabetic, renal Special Instructions: physical therapy, occupational therapy, home health RN Follow up with: SAIRA ONOFRE MD [Primary Care Provider] - 7 Days CHRISTAL SYLVESTER MD [Staff Physician] - 7 Days CON SINGH MD [Staff Physician] - 7 Days Prescriptions: guaiFENesin/DM 100/10MG [Robitussin Dm] 10 ml PO Q4HR #14 [facility] [place]
--- NOTE | 2017-09-17 15:18 | Event Note ---
Date: 09/17/17 Discussed venous thrombus and possible need for treatment with team. Given this patient's prior hematomas and propensity for bleeding events, anticoagulation for this thrombus will incur more risk than benefit. This was discussed with the primary team.
[2017-09-17] MEDS: HEPARIN IV PRN (15:56)
[2017-09-17] MEDS: NORVASC PO SCH (16:00)
[2017-09-17] MEDS: PEPCID PO SCH (16:00)
[2017-09-17] MEDS: ASPIRIN PO SCH (18:02)
[2017-09-17] MEDS: APRESOLINE IV PRN ×2 (18:05→20:14)
[2017-09-17] MEDS: PRAVACHOL PO SCH ×2 (20:16→23:50)
[2017-09-17] MEDS ORDERED: CATAPRES PO ONE (22:43)
[2017-09-18] MEDS: HumaLOG SUB-Q SCH ×3 (00:12→12:35)
[2017-09-18] MEDS: APRESOLINE PO SCH (05:08)
--- NOTE | 2017-09-18 09:58 | Progress Note ---
Assessment and Plan Assessment and plan: 82 YO Female with Anemia, CKD, DM, HTN, HLD, TIA admitted directly at the request of Dr. Sylvester. Pt was seen and evaluated today in Dr. Sylvester's office and was found to have evidence of ESRD and in need of permacath placement for dialysis. Pt medically stable, and does not require urgent dialysis as per Dr. Sylvester. Pt will be seen by vascular service for elective permacath placement in am. Pt seen and evaluated upon arrival. Pt complains of chronic bue/ble swelling. Pt denies fever, chills, CP, Palpitations, NVD, unintentional weigh loss, night sweats, NVD, skin rash, confusion, falls, trauma, or recent ill contacts. No reported nursing events. Pt sitting in chair in NAD. Pt family at bedside, and serve as resolute professional. Plan of care discussed with patient and family , who agree with care plan. (1) ESRD (end stage renal disease) Current Visit: Yes Status: Acute Plan to address problem: Nephrology consulted. Notify nephrology upon arrival, cbc, cmp, vascular surgery consulted, in place (2) Diabetes Current Visit: Yes Status: Acute Plan to address problem: consistent carbohydrate diet, insulin, accu check (3) Metabolic acidosis Current Visit: Yes Status: Acute Plan to address problem: secondary to ESRD, dialysis as per renal team, repeat bmp (4) HTN (hypertension) pATIENT DISCHARGE HELD YESTERDAY DUE TO ELEVATED bp, NOW IMPROVED. Proceed with discharge. BP check at PCP in 2 days. (5) SEE DOCUMENTED DISCHARGE SUMMARY AND ADDENDUM History Interval history: Patient seen and examined, Resting comfortably on the bed. family at bedside. BP much better today Hospitalist Physical - Physical exam Narrative exam: - Constitutional General appearance: Present: no acute distress, well-nourished - EENT Eyes: Present: PERRL ENT: hearing intact, clear oral mucosa - Neck Neck: Present: supple, normal ROM - Respiratory Respiratory effort: normal Respiratory: bilateral: diminished - Cardiovascular Heart Sounds: Present: S1 & S2. Absent: rub, click - Extremities Extremities: pulses symmetrical, No edema Extremity abnormal: edema-Right > Left Peripheral Pulses: within normal limits - Abdominal General gastrointestinal: Present: soft, non-tender, non-distended, normal bowel sounds Female genitourinary: Present: normal - Integumentary Integumentary: Present: clear, warm, dry - Musculoskeletal Musculoskeletal: gait normal, strength equal bilaterally. Permacath to right chest wall area. - Psychiatric Psychiatric: appropriate mood/affect, intact judgment & insight - Neurologic Neurologic: CNII-XII intact, moves all extremities - Constitutional Vitals: Temp Pulse Resp BP Pulse Ox 98.0 F 68 20 159/59 92 09/18/17 08:06 09/18/17 08:06 09/18/17 08:06 09/18/17 08:06 09/18/17 08:06 General appearance: Present: no acute distress, other (sleeping) Results - Labs CBC & Chem 7: 09/15/17 05:37 09/15/17 05:43 Labs: Laboratory Last Values WBC 4.5 K/mm3 (4.5-11.0) 09/15/17 05:37 RBC 2.76 M/mm3 (3.65-5.03) L 09/15/17 05:37 Hgb 8.2 gm/dl (10.1-14.3) L 09/15/17 05:37 Hct 24.3 % (30.3-42.9) L 09/15/17 05:37 MCV 88 fl (79-97) 09/15/17 05:37 MCH 30 pg (28-32) 09/15/17 05:37 MCHC 34 % (30-34) 09/15/17 05:37 RDW 15.1 % (13.2-15.2) 09/15/17 05:37 Plt Count 214 K/mm3 (140-440) 09/15/17 05:37 Lymph % (Auto) 15.2 % (13.4-35.0) 09/13/17 20:38 [place] % (Auto) 10.1 % (0.0-7.3) H 09/13/17 20:38 Eos % (Auto) 1.5 % (0.0-4.3) 09/13/17 20:38 Baso % (Auto) 1.1 % (0.0-1.8) 09/13/17 20:38 Lymph # 0.7 K/mm3 (1.2-5.4) L 09/13/17 20:38 [place] # 0.5 K/mm3 (0.0-0.8) 09/13/17 20:38 Eos # 0.1 K/mm3 (0.0-0.4) 09/13/17 20:38 Baso # 0.1 K/mm3 (0.0-0.1) 09/13/17 20:38 Seg Neutrophils % 72.1 % (40.0-70.0) H 09/13/17 20:38 Seg Neutrophils # 3.3 K/mm3 (1.8-7.7) 09/13/17 20:38 PT 13.4 Sec. (12.2-14.9) 09/13/17 20:42 INR 0.97 (0.87-1.13) 09/13/17 20:42 Sodium 131 mmol/L (137-145) L 09/15/17 05:43 Potassium 3.6 mmol/L (3.6-5.0) D 09/15/17 05:43 Chloride 97.0 mmol/L (98-107) L 09/15/17 05:43 Carbon Dioxide 24 mmol/L (22-30) 09/15/17 05:43 Anion Gap 14 mmol/L 09/15/17 05:43 BUN 34 mg/dL (7-17) H 09/15/17 05:43 Creatinine 3.0 mg/dL (0.7-1.2) H 09/15/17 05:43 Estimated GFR 15 ml/min 09/15/17 05:43 BUN/Creatinine Ratio 11 % 09/15/17 05:43 Glucose 116 mg/dL (65-100) H 09/15/17 05:43 POC Glucose 142 (70-105) H 09/18/17 06:18 Calcium 7.8 mg/dL (8.4-10.2) L 09/15/17 05:43 Total Bilirubin 0.30 mg/dL (0.1-1.2) 09/13/17 20:42 AST 20 units/L (5-40) 09/13/17 20:42 ALT < 5 units/L (7-56) L 09/13/17 20:42 Alkaline Phosphatase 78 units/L (35-129) 09/13/17 20:42 Total Protein 6.4 g/dL (6.3-8.2) 09/13/17 20:42 Albumin 3.3 g/dL (3.9-5) L 09/13/17 20:42 Albumin/Globulin Ratio 1.1 % 09/13/17 20:42 Hepatitis A IgM Ab Non-reactive (NonReactive) 09/14/17 12:39 Hep Bs Antigen Non-reactive (Negative) 09/14/17 12:39 Hep B Core IgM Ab Non-reactive (NonReactive) 09/14/17 12:39 Hepatitis C Antibody Non-reactive (NonReactive) 09/14/17 12:39
[2017-09-18] MEDS: NORVASC PO SCH (10:06)
[2017-09-18] MEDS: ASPIRIN PO SCH (10:06)
[2017-09-18] MEDS: PEPCID PO SCH (10:07)
[2017-09-18 12:37] VITALS: BP 151/60
--- NOTE | 2017-09-19 12:29 | Vascular Lab Report ---
Upper extremity vein mapping Reason for exam: Preoperative evaluation for hemodialysis access Comments: On the right, the cephalic vein is usable from wrist to shoulder. The basilic vein is not usable from wrist to shoulder. The brachial and radial arteries are patent. The radial artery is of normal caliber. There is thrombus in the internal jugular vein. Nonspecific soft tissue changes are seen in the medial upper arm. On the left, the cephalic vein is usable in the upper arm. The basilic vein is usable from wrist to shoulder. The brachial and radial arteries are patent. The radial artery is of normal caliber. Impression: The right internal jugular vein is thrombosed around the permacath. The right cephalic vein is of adequate caliber of the wrist and shoulder. The left cephalic vein is usable in the upper arm. The right basilic vein is small throughout. The left basilic vein is usable throughout. No arterial issues were identified. Nonspecific soft tissue changes are seen in the right upper arm.
== END 2017-09-18 14:00 | disposition home health service (06) | DRG 673 ==
LOC: 4A 12:58 → UNDOADMIN 12:58 → 4A 13:40
PROVIDERS: ADMIT Internal Medicine; ATTEND Internal Medicine
PROC: 0JH63XZ Insertion of Tunneled Vascular Access Device into Chest Subcutaneous Tissue and Fascia, Percutaneous Approach (ICD-10-PCS; principal; 2017-09-14)
PROC: 02H633Z Insertion of Infusion Device into Right Atrium, Percutaneous Approach (ICD-10-PCS; 2017-09-14)
PROC: B543ZZA Ultrasonography of Right Jugular Veins, Guidance (ICD-10-PCS; 2017-09-14)
PROC: B5131ZA Fluoroscopy of Right Jugular Veins using Low Osmolar Contrast, Guidance (ICD-10-PCS; 2017-09-14)
DX: I12.0 Hypertensive chronic kidney disease with stage 5 chronic kidney disease or end stage renal disease (principal); N18.6 End stage renal disease; E87.2 Acidosis; E11.22 Type 2 diabetes mellitus with diabetic chronic kidney disease; N17.9 Acute kidney failure, unspecified; D63.1 Anemia in chronic kidney disease; Z86.73 Personal history of transient ischemic attack (TIA), and cerebral infarction without residual deficits; Z82.49 Family history of ischemic heart disease and other diseases of the circulatory system; Z83.3 Family history of diabetes mellitus; Z90.710 Acquired absence of both cervix and uterus; Z79.899 Other long term (current) drug therapy; Z79.82 Long term (current) use of aspirin
CPT/HCPCS: 36415; 36558; 71045; 77001; 80048; 80053; 80074; 82962; 85025; 85027; 85610; 93005; 93010; A9270-GY; C1750; J0360; J0690; J0885; J1644; J1815; J2250; J3010; J7030; J7050

== ENCOUNTER 2017-11-01 08:40 | Observation (INO) | payer MEDICAID ==
[2017-11-01] MEDS ORDERED: NACL 0.9% 1000 ML 1,000 ML ONE (11:23)
--- NOTE | 2017-11-01 12:55 | Anesthesia Consultation ---
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 no deficts) Hx Psychiatric Problems: Yes - Gastrointestinal Hx Gastroesophageal Reflux Disease: Yes - Endocrine Hx Renal Disease: Yes Hx End Stage Renal Disease: Yes Hx Insulin Dependent Diabetes: Yes - Hematic Hx Anemia: Yes - Other Systems Hx Cancer: Yes (Skin Cancers)
[2017-11-01] MEDS ORDERED: HumuLIN R SUB-Q ONE (13:00)
[2017-11-01] MEDS ORDERED: D10W 1,000 ML IV SCH (13:00)
[2017-11-01] MEDS ORDERED: NACL 0.9% 100 ML IV PRN (16:46)
[2017-11-01] MEDS ORDERED: NACL 0.9 (PRIMING MACHINE ONLY DIALYSIS) MC ONE (18:18)
--- NOTE | 2017-11-01 18:33 | Progress Note ---
Assessment and Plan - Patient Problems (1) Acute hyperkalemia Current Visit: Yes Status: Acute Plan to address problem: hemodialysis, assess meds (2) CKD (chronic kidney disease) Current Visit: No Status: Chronic Qualifiers: Chronic kidney disease stage: stage 3 (moderate) Qualified Code(s): N18.3 - Chronic kidney disease, stage 3 (moderate) Plan to address problem: HD reschedule creation of avg Subjective Date of service: 11/01/17 Principal diagnosis: ESRD, hyperkalemia Interval history: Pt scheduled for outpatient creation of avg, but was found to be hyperkalemic with K+ level of 6.6 on repeat lab. efforts to decrease the level to a safe one proved unsuccessful, and she was admitted to the hospitalist service for urgent hemodialysis. Objective - Labs CBC & Chem 7: 11/01/17 14:35 Labs: Abnormal lab results 11/01/17 11/01/17 11/01/17 Range/Units 12:15 14:35 14:52 Potassium 6.6 H* 6.0 H (3.6-5.0) mmol/L POC Glucose 106 H (70-105)
--- NOTE | 2017-11-01 21:58 | History and Physical Report ---
History of Present Illness Date of examination: 11/01/17 Date of admission: 11/01/17 16:13 Chief complaint: Chief complaint: Hypertension level. History of present illness: History of present illness: Pt was scheduled for outpatient creation of avg, but was found to be hyperkalemic with K+ level of 6.6 on repeat lab. efforts to decrease the level to a safe one proved unsuccessful, and hence being admitted to the hospitalist service for urgent hemodialysis and management of high Potassium. Patient not symptomatic. No chest pain no shortness of breath no palpitations. No fever no chills. Past History Past Medical History: diabetes, ESRD, GERD, hypertension, hyperlipidemia, renal failure, stroke Past Surgical History: Other (AV graft) Social history: lives with family, full code. denies: smoking, alcohol abuse Family history: hypertension Medications and Allergies Allergies Allergy/AdvReac Type Severity Reaction Status Date / Time No Known Allergies Allergy Verified 10/23/17 15:20 Home Medications Medication Instructions Recorded Confirmed Last Taken Type Glimepiride [Amaryl] 4 mg PO 0800 08/22/17 11/01/17 11/01/17 07:00 History Aspirin [Aspirin TAB] 325 mg PO QDAY #30 tablet 09/11/17 11/01/17 10/31/17 12: 00 Rx Famotidine [Pepcid] 20 mg PO QDAY #30 tablet 09/11/17 11/01/17 10/31/17 09:00 Rx Metoprolol [Lopressor TAB] 12.5 mg PO BID #60 tablet 09/11/17 11/01/17 11/01/17 07:00 Rx Pravastatin [Pravachol] 40 mg PO QHS #30 tablet 09/11/17 11/01/17 10/31/17 20: 00 Rx amLODIPine [Norvasc] 10 mg PO QDAY #30 tablet 09/11/17 11/01/17 10/31/17 09:00 Rx traMADol [Ultram 50 MG tab] 50 mg PO Q8H PRN #14 tablet 09/11/17 10/30/17 Unknown Rx guaiFENesin/DM 100/10MG 10 ml PO Q4HR #14 udc 09/17/17 10/30/17 Unknown Rx [Robitussin Dm] Lasix 80 mg PO 11/01/17 10/30/17 09:00 History Losartan Potassium 50 mg PO DAILY 11/01/17 11/01/17 10/31/17 09:00 History Vitamin D (Nf) 1,000 mg PO DAILY 11/01/17 11/01/17 10/31/17 08:00 History hydrALAZINE 50 mg PO Q8HR 11/01/17 11/01/17 10/31/17 20:00 History Active Meds: Active Medications Dextrose (D10w) 1,000 mls @ 42 mls/hr IV DIRECT DARSHANA Last Admin: 11/01/17 13:20 Dose: 42 mls/hr Sodium Chloride (Nacl 0.9%) 100 mls @ 999 mls/hr IV MICHELE PRN PRN Reason: Hypotension Review of Systems All systems: negative Exam - Constitutional Vitals: Temp Pulse Resp BP Pulse Ox 97.9 F 61 16 162/70 90 11/01/17 21:22 11/01/17 21:22 11/01/17 21:22 11/01/17 21:22 11/01/17 21:22 General appearance: Present: no acute distress, well-nourished - EENT Eyes: Present: PERRL ENT: hearing intact, clear oral mucosa - Neck Neck: Present: supple, normal ROM - Respiratory Respiratory effort: normal Respiratory: bilateral: CTA - Cardiovascular Heart rate: 78 Rhythm: regular Heart Sounds: Present: S1 & S2. Absent: rub, click - Extremities Extremities: no ischemia, pulses intact, pulses symmetrical, No edema Peripheral Pulses: within normal limits - Abdominal General gastrointestinal: Present: soft, non-tender, non-distended, normal bowel sounds Female genitourinary: Present: normal - Rectal Rectal Exam: deferred - Integumentary Integumentary: Present: clear, warm, dry - Musculoskeletal Musculoskeletal: gait normal, strength equal bilaterally - Psychiatric Psychiatric: appropriate mood/affect, intact judgment & insight - Neurologic Neurologic: CNII-XII intact, moves all extremities - Allied Health Allied health notes reviewed: nursing, case management Results - Labs CBC & Chem 7: 11/01/17 14:35 Labs: Laboratory Last Values Potassium 6.0 mmol/L (3.6-5.0) H 11/01/17 14:35 POC Glucose 106 (70-105) H 11/01/17 14:52 Assessment and Plan Advance Directives: Yes (full code) VTE prophylaxis?: Chemical Plan of care discussed with patient/family: Yes - Patient Problems (1) Acute hyperkalemia Current Visit: Yes Status: Acute Plan to address problem: Patient going for emergent dialysis Will recheck the potassium Kayexalate and calcium chloride if necessary (2) ESRD (end stage renal disease) Current Visit: No Status: Chronic Plan to address problem: Continue hemodialysis (3) Hypertension Current Visit: Yes Status: Chronic Qualifiers: Hypertension type: essential hypertension Qualified Code(s): I10 - Essential (primary) hypertension Plan to address problem: Continue amlodipine and metoprolol (4) Hyperlipidemia Current Visit: Yes Status: Chronic Qualifiers: Hyperlipidemia type: mixed hyperlipidemia Qualified Code(s): E78.2 - Mixed hyperlipidemia Plan to address problem: Continue statins (5) CHF (congestive heart failure) Current Visit: Yes Status: Chronic Qualifiers: Heart failure type: combined systolic and diastolic Plan to address problem: Continue Lasix (6) GERD (gastroesophageal reflux disease) Current Visit: Yes Status: Chronic Qualifiers: Esophagitis presence: without esophagitis Qualified Code(s): K21.9 - Gastro -esophageal reflux disease without esophagitis Plan to address problem: Continue famotidine (7) Hemodialysis access, AV graft Current Visit: Yes Status: Acute Plan to address problem: Vascular surgery consulted for AVG placement (8) DVT prophylaxis Current Visit: No Status: Acute Plan to address problem: Heparin 5000- sq q12
[2017-11-01] MEDS ORDERED: PERCOCET 5/325 PO PRN (22:18)
[2017-11-01] MEDS ORDERED: ZOFRAN IV PRN (22:18)
[2017-11-01] MEDS ORDERED: AMBIEN PO PRN (22:18)
[2017-11-01] MEDS ORDERED: TYLENOL PO PRN (22:18)
[2017-11-01] MEDS ORDERED: SODIUM CHLORIDE FLUSH SYRINGE 10 ML IV PRN (22:18)
[2017-11-01] MEDS ORDERED: MORPHINE IV PRN (22:18)
[2017-11-01 23:09] LABS: Hematocrit 44.4 % (30.3-42.9); Hemoglobin 14.7 gm/dl (10.1-14.3); Mean Corpuscular HGB Conc 33 % (30-34); Mean Corpuscular Hemoglobin 30 pg (28-32); Mean Corpuscular Volume 91 fl (79-97); Platelet Count 151 K/mm3 (140-440); Red Blood Count 4.86 M/mm3 (3.65-5.03); Red Cell Distribution Width 16.5 % (13.2-15.2)
[2017-11-01 23:44] LABS: Albumin 3.8 g/dL (3.9-5); BUN/Creatinine Ratio 11; Blood Urea Nitrogen 21 mg/dL (7-17); Calcium 9.9 mg/dL (8.4-10.2); Hemolysis Index 58
[2017-11-01 23:45] LABS: Alanine Aminotransferase < 5 units/L (7-56)
[2017-11-02] MEDS: LOPRESSOR PO SCH ×2 (00:09→09:25)
[2017-11-02] MEDS: HEPARIN SUB-Q SCH ×2 (00:10→09:27)
[2017-11-02 00:11] LABS: Total Cells Counted 100
[2017-11-02 00:12] LABS: RBC Morphology Normal
[2017-11-02] MEDS ORDERED: D50W (25GM) Syringe IV ONE ×3 (07:30→07:43)
[2017-11-02] MEDS ORDERED: D50W (25GM) Vial IV STA (07:42)
[2017-11-02] MEDS: HumaLOG SUB-Q SCH ×3 (07:48→17:30)
[2017-11-02] MEDS ORDERED: AMARYL PO SCH (08:00)
[2017-11-02] MEDS ORDERED: D50W (25GM) Syringe IV PRN (08:00)
--- NOTE | 2017-11-02 08:48 | Consultation ---
Past History Past Medical History: diabetes, ESRD, GERD, hypertension, hyperlipidemia, renal failure, stroke Past Surgical History: Other (AV graft) Social history: lives with family, full code. denies: smoking, alcohol abuse Family history: hypertension Medications and Allergies Allergies Allergy/AdvReac Type Severity Reaction Status Date / Time No Known Allergies Allergy Verified 10/23/17 15:20 Home Medications Medication Instructions Recorded Confirmed Last Taken Type Glimepiride [Amaryl] 4 mg PO 0800 08/22/17 11/01/17 11/01/17 07:00 History Aspirin [Aspirin TAB] 325 mg PO QDAY #30 tablet 09/11/17 11/01/17 10/31/17 12: 00 Rx Metoprolol [Lopressor TAB] 12.5 mg PO BID #60 tablet 09/11/17 11/01/17 11/01/17 07:00 Rx Pravastatin [Pravachol] 40 mg PO QHS #30 tablet 09/11/17 11/01/17 10/31/17 20: 00 Rx amLODIPine [Norvasc] 10 mg PO QDAY #30 tablet 09/11/17 11/01/17 10/31/17 09:00 Rx Lasix 80 mg PO DAILY 11/01/17 11/02/17 10/30/17 09:00 History Losartan Potassium 50 mg PO DAILY 11/01/17 11/01/17 10/31/17 13:00 History Vitamin D (Nf) 1,000 mg PO DAILY 11/01/17 11/01/17 10/27/17 08:00 History Active Meds: Active Medications Acetaminophen (Tylenol) 650 mg PO Q4H PRN PRN Reason: Pain MILD(1-3)/Fever >100.5/POSEY Amlodipine Besylate (Norvasc) 10 mg PO QDAY [facility] Aspirin (Aspirin) 325 mg PO QDAY [facility] Cholecalciferol (Vitamin D3) 1,000 unit PO DAILY [facility] Dextrose (D50w (25gm) Syringe) 50 ml IV PRN PRN PRN Reason: Hypoglycemia Furosemide (Lasix) 80 mg PO QDAY [facility] Glimepiride (Amaryl) 4 mg PO 0800 [facility] Last Admin: 11/02/17 07:48 Dose: Not Given Heparin Sodium (Porcine) (Heparin) 5,000 unit SUB-Q Q12HR [facility] Last Admin: 11/02/17 00:10 Dose: 5,000 unit Dextrose (D10w) 1,000 mls @ 42 mls/hr IV DIRECT [facility] Last Admin: 11/01/17 13:20 Dose: 42 mls/hr Sodium Chloride (Nacl 0.9%) 100 mls @ 999 mls/hr IV MICHELE PRN PRN Reason: Hypotension Insulin Human Lispro (Humalog) 0 unit SUB-Q ACHS [facility]; Protocol Last Admin: 11/02/17 07:48 Dose: Not Given Losartan Potassium (Cozaar) 50 mg PO DAILY [facility] Metoprolol Tartrate (Lopressor) 12.5 mg PO BID [facility] Last Admin: 11/02/17 00:09 Dose: 12.5 mg Morphine Sulfate (Morphine) 2 mg IV Q4H PRN PRN Reason: Pain, Moderate (4-6) Ondansetron HCl (Zofran) 4 mg IV Q8H PRN PRN Reason: Nausea And Vomiting Oxycodone/Acetaminophen (Percocet 5/325) 1 tab PO Q6H PRN PRN Reason: Pain, Moderate (4-6) Pravastatin Sodium (Pravachol) 40 mg PO QHS [facility] Sodium Chloride (Sodium Chloride Flush Syringe 10 Ml) 10 ml IV BID [facility] Sodium Chloride (Sodium Chloride Flush Syringe 10 Ml) 10 ml IV PRN PRN PRN Reason: LINE FLUSH Last Admin: 11/02/17 07:51 Dose: 10 ml Zolpidem Tartrate (Ambien) 5 mg PO QHS PRN PRN Reason: Insomnia Exam - Vital Signs Vital signs: Vital Signs Temp Pulse Resp BP Pulse Ox 97.5 F L 52 L 18 142/57 95 11/01/17 11:30 11/01/17 11:30 11/01/17 11:30 11/01/17 11:30 11/01/17 11:30 Results - Lab Results 11/01/17 22:53 11/01/17 22:53 Most recent lab results Calcium 9.9 mg/dL (8.4-10.2) 11/01/17 22:53
--- NOTE | 2017-11-02 09:18 | Progress Note ---
Assessment and Plan Assessment and plan: --Hypoglycemia; IV D50 as needed, hold oral hypoglycemics Treatment checks of blood sugars, consider D5/D10 IV fluids if needed, patient' s hemoglobin A1c is less than 6 --Acute hypokalemia; corrected, secondary to end-stage renal disease, hemodialysis per schedule --End-stage renal disease; hemodialysis, nephrology following --Hypertension; moderate control, continue current antihypertensives and when necessary medications --History of diabetes mellitus, on oral hypoglycemics at home However the patient's hemoglobin A1c is 5.7, X check sliding scale coverage ADA diet --DVT prophylaxis; heparin --Full CODE STATUS History Interval history: Patient was admitted with hyperkalemia after outpatient AV graft placement. Now potassium levels corrected Hospitalist Physical - Constitutional Vitals: Temp Pulse Resp BP Pulse Ox 98.7 F 63 20 132/64 96 11/02/17 08:00 11/02/17 08:00 11/02/17 08:00 11/02/17 08:00 11/02/17 08:00 General appearance: Present: no acute distress, well-nourished Results - Labs CBC & Chem 7: 11/01/17 22:53 11/01/17 22:53 Labs: Laboratory Last Values WBC 4.2 K/mm3 (4.5-11.0) L 11/01/17 22:53 RBC 4.86 M/mm3 (3.65-5.03) 11/01/17 22:53 Hgb 14.7 gm/dl (10.1-14.3) H 11/01/17 22:53 Hct 44.4 % (30.3-42.9) H 11/01/17 22:53 MCV 91 fl (79-97) 11/01/17 22:53 MCH 30 pg (28-32) 11/01/17 22:53 MCHC 33 % (30-34) 11/01/17 22:53 RDW 16.5 % (13.2-15.2) H 11/01/17 22:53 Plt Count 151 K/mm3 (140-440) 11/01/17 22:53 [place] % (Auto) Integrated Marketing Specialist 11/01/17 22:53 Add Manual Diff Complete 11/01/17 22:53 Total Counted 100 11/01/17 22:53 Seg Neuts % (Manual) 57.0 % (40.0-70.0) 11/01/17 22:53 Band Neutrophils % 1.0 % 11/01/17 22:53 Lymphocytes % (Manual) 19.0 % (13.4-35.0) 11/01/17 22:53 Reactive Lymphs % (Man) 0 % 11/01/17 22:53 Monocytes % (Manual) 17.0 % (0.0-7.3) H 11/01/17 22:53 Eosinophils % (Manual) 4.0 % (0.0-4.3) 11/01/17 22:53 Basophils % (Manual) 2.0 % (0.0-1.8) H 11/01/17 22:53 Metamyelocytes % 0 % 11/01/17 22:53 Myelocytes % 0 % 11/01/17 22:53 Promyelocytes % 0 % 11/01/17 22:53 Blast Cells % 0 % 11/01/17 22:53 Nucleated RBC % Not Reportable 11/01/17 22:53 Seg Neutrophils # Man 2.4 K/mm3 (1.8-7.7) 11/01/17 22:53 Band Neutrophils # 0.0 K/mm3 11/01/17 22:53 Lymphocytes # (Manual) 0.8 K/mm3 (1.2-5.4) L 11/01/17 22:53 Abs React Lymphs (Man) 0.0 K/mm3 11/01/17 22:53 Monocytes # (Manual) 0.7 K/mm3 (0.0-0.8) 11/01/17 22:53 Eosinophils # (Manual) 0.2 K/mm3 (0.0-0.4) 11/01/17 22:53 Basophils # (Manual) 0.1 K/mm3 (0.0-0.1) 11/01/17 22:53 Metamyelocytes # 0.0 K/mm3 11/01/17 22:53 Myelocytes # 0.0 K/mm3 11/01/17 22:53 Promyelocytes # 0.0 K/mm3 11/01/17 22:53 Blast Cells # 0.0 K/mm3 11/01/17 22:53 WBC Morphology Not Reportable 11/01/17 22:53 Hypersegmented Neuts Not Reportable 11/01/17 22:53 Hyposegmented Neuts Not Reportable 11/01/17 22:53 Hypogranular Neuts Not Reportable 11/01/17 22:53 Smudge Cells Not Reportable 11/01/17 22:53 Toxic Granulation Not Reportable 11/01/17 22:53 Toxic Vacuolation Not Reportable 11/01/17 22:53 Dohle Bodies Not Reportable 11/01/17 22:53 Pelger-Huet Anomaly Not Reportable 11/01/17 22:53 Dalia Rods Not Reportable 11/01/17 22:53 Platelet Estimate Appears normal 11/01/17 22:53 Clumped Platelets Not Reportable 11/01/17 22:53 Plt Clumps, EDTA Not Reportable 11/01/17 22:53 Large Platelets Not Reportable 11/01/17 22:53 Giant Platelets Not Reportable 11/01/17 22:53 Platelet Satelliting Not Reportable 11/01/17 22:53 Plt Morphology Comment Not Reportable 11/01/17 22:53 RBC Morphology Normal 11/01/17 22:53 Dimorphic RBCs Not Reportable 11/01/17 22:53 Polychromasia Not Reportable 11/01/17 22:53 Hypochromasia Not Reportable 11/01/17 22:53 Poikilocytosis Not Reportable 11/01/17 22:53 Anisocytosis Not Reportable 11/01/17 22:53 Microcytosis Not Reportable 11/01/17 22:53 Macrocytosis Not Reportable 11/01/17 22:53 Spherocytes Not Reportable 11/01/17 22:53 Pappenheimer Bodies Not Reportable 11/01/17 22:53 Sickle Cells Not Reportable 11/01/17 22:53 Target Cells Not Reportable 11/01/17 22:53 Tear Drop Cells Not Reportable 11/01/17 22:53 Ovalocytes Not Reportable 11/01/17 22:53 Helmet Cells Not Reportable 11/01/17 22:53 [place] Bodies Not Reportable 11/01/17 22:[address] [place] Rings Not Reportable 11/01/17 22:53 [place] Cells Not Reportable 11/01/17 22:53 Bite Cells Not Reportable 11/01/17 22:53 Crenated Cell Not Reportable 11/01/17 22:53 Elliptocytes Not Reportable 11/01/17 22:53 Acanthocytes (Spur) Not Reportable 11/01/17 22:53 Rouleaux Not Reportable 11/01/17 22:53 Hemoglobin C Crystals Not Reportable 11/01/17 22:53 Schistocytes Not Reportable 11/01/17 22:53 Malaria parasites Not Reportable 11/01/17 22:53 Golden Bodies Not Reportable 11/01/17 22:53 Hem Pathologist Commnt No 11/01/17 22:53 Sodium 133 mmol/L (137-145) L 11/01/17 22:53 Potassium 4.7 mmol/L (3.6-5.0) D 11/01/17 22:53 Chloride 93.1 mmol/L (98-107) L 11/01/17 22:53 Carbon Dioxide 29 mmol/L (22-30) 11/01/17 22:53 Anion Gap 16 mmol/L 11/01/17 22:53 BUN 21 mg/dL (7-17) H 11/01/17 22:53 Creatinine 1.9 mg/dL (0.7-1.2) H D 11/01/17 22:53 Estimated GFR 25 ml/min 11/01/17 22:53 BUN/Creatinine Ratio 11 % 11/01/17 22:53 Glucose 65 mg/dL (65-100) 11/01/17 22:53 POC Glucose 271 (70-105) H 11/02/17 08:14 Hemoglobin A1c 5.7 % (4-6) 11/01/17 22:53 Calcium 9.9 mg/dL (8.4-10.2) 11/01/17 22:53 Total Bilirubin 0.30 mg/dL (0.1-1.2) 11/01/17 22:53 AST 25 units/L (5-40) 11/01/17 22:53 ALT < 5 units/L (7-56) L 11/01/17 22:53 Alkaline Phosphatase 68 units/L (35-129) 11/01/17 22:53 Total Protein 6.7 g/dL (6.3-8.2) 11/01/17 22:53 Albumin 3.8 g/dL (3.9-5) L 11/01/17 22:53 Albumin/Globulin Ratio 1.3 % 11/01/17 22:53
[2017-11-02] MEDS ORDERED: NORVASC PO SCH (10:00)
[2017-11-02] MEDS ORDERED: LASIX 80 MG PO SCH (10:00)
[2017-11-02] MEDS ORDERED: VITAMIN D 1000 MG PO SCH (10:00)
[2017-11-02] MEDS ORDERED: VITAMIN D3 PO SCH (10:00)
[2017-11-02] MEDS ORDERED: SODIUM CHLORIDE FLUSH SYRINGE 10 ML IV SCH (10:00)
[2017-11-02] MEDS ORDERED: COZAAR PO SCH (10:00)
[2017-11-02] MEDS ORDERED: LASIX PO SCH (10:00)
[2017-11-02] MEDS ORDERED: ASPIRIN PO SCH (10:00)
--- NOTE | 2017-11-02 13:10 | XRay Report ---
AP CHEST: HISTORY: Hypertension, shortness of breath Cardiomegaly, pulmonary venous congestion and small pleural effusions have essentially resolved since 09/13/17. Heart size is borderline on today's exam. The lungs are clear. Right dialysis catheter is in good position. IMPRESSION: Borderline heart size. Lungs clear. Volume overload has resolved since 09/13/17.
[2017-11-02 13:43] VITALS: BP 124/56
[2017-11-02 14:53] LABS: Alanine Aminotransferase 7 units/L (7-56); Albumin 3.6 g/dL (3.9-5)
[2017-11-02 15:18] LABS: Bilirubin,Direct < 0.2 mg/dL (0-0.2)
--- NOTE | 2017-11-02 15:39 | Discharge Summary ---
Providers - Providers Date of Admission: 11/01/17 16:13 Date of discharge: 11/02/17 Attending physician: MERA KIRAN 11/01/17 Consult to Case Management [CONS] Routine Services Needed at Discharge: Home Health Services Notified:: natalia Phone number called:: [phone] Was contact made?: Yes If yes, spoke with:: natalia Time called:: 10:49 11/01/17 16:21 Consult to Physician [CONS] Urgent Comment: BY DORIS Consulting Provider: CHRISTAL TORRES Physician Instructions: CONSULT WAS CALLED TO @ 16:39 Reason For Exam: ESRD NEEDING DIALYSIS, HYPERKALEMIA 11/01/17 22:14 Consult to Physician [CONS] Routine Comment: Consulting Provider: CON SINGH Physician Instructions: Reason For Exam: AVG placement Primary care physician: SAIRA ONOFRE Hospitalization Reason for admission: hyperkalemia Condition: Stable Procedures: AV graft Hospital course: Patient was scheduled for outpatient creation of AV graft however found to be hyperkalemic, with potassium of 6.6, admitted to the hospital symptomatically managed, received stat hemodialysis, the manager transportation planning Patient later underwent right in the distal forearm IV access Patient symptoms significantly improved Today patient is comfortable no new complaints Vital signs reviewed stable Cleared by nephrology for discharge and follow up with them in the office Case management have evaluated the patient and assisted with DC planning Patient is hemodynamically and clinically stable at discharge Final diagnoses; --Hyperkalemia; corrected --Hypertension --End-stage renal disease on hemodialysis --Dyslipidemia --chronic systolic congestive heart failure --Gastroesophageal reflux disease Disposition: DC/[place]-06 HOME UNDER HOME [facility] Time spent for discharge: 32 min Core Measure Documentation - Palliative Care Palliative Care/ Comfort Measures: Not Applicable - Core Measures Any of the following diagnoses?: none Exam - Constitutional Vitals: Temp Pulse Resp BP Pulse Ox 98.2 F 62 18 124/56 97 11/02/17 13:36 11/02/17 13:36 11/02/17 13:36 11/02/17 13:36 11/02/17 13:36 General appearance: Present: no acute distress, well-nourished - EENT Eyes: Present: PERRL, EOM intact - Neck Neck: Present: supple, normal ROM - Respiratory Respiratory effort: normal, pursed lips Respiratory: bilateral: diminished, negative: rales, rhonchi, wheezing - Cardiovascular Rhythm: regular Heart Sounds: Present: S1 & S2 - Extremities Extremities: no ischemia, No edema Peripheral Pulses: within normal limits - Abdominal General gastrointestinal: Present: soft, non-tender, non-distended, normal bowel sounds - Integumentary Integumentary: Present: clear, warm - Musculoskeletal Musculoskeletal: strength equal bilaterally, generalized weakness - Psychiatric Psychiatric: appropriate mood/affect, cooperative - Neurologic Neurologic: CNII-XII intact, moves all extremities Plan Activity: advance as tolerated, fall precautions Diet: diabetic, renal Additional Instructions: Follow renal/HD per schedule [TTS]. Follow-up primary care physician in 2-3 days. Do not take glimepiride [diabetic medication ] as your sugars are low. Check with primary care physician for advise if sugars are high Follow up with: SAIRA ONOFRE MD [Primary Care Provider] - 7 Days CHRISTAL TORRES MD [Staff Physician] - 7 Days
[2017-11-02] MEDS ORDERED: PRAVACHOL PO SCH (22:00)
== END 2017-11-02 19:10 | disposition home health service (06) ==
LOC: OR 08:40 → 2B-ACE 16:13
PROVIDERS: ADMIT Internal Medicine; ATTEND Internal Medicine
DX: E87.5 Hyperkalemia (principal); I13.2 Hypertensive heart and chronic kidney disease with heart failure and with stage 5 chronic kidney disease, or end stage renal disease; N18.6 End stage renal disease; I50.9 Heart failure, unspecified; E78.5 Hyperlipidemia, unspecified; K21.9 Gastro-esophageal reflux disease without esophagitis; Z99.2 Dependence on renal dialysis
CPT/HCPCS: 36415; 71045; 80053; 80074; 82947; 82962; 83036; 84132; 85007; 85025; 93005; 93010; 96361; 96372; 96374; 96375; G0257; G0378; J1644; J7030; J1815

== ENCOUNTER 2017-11-15 06:03 | Day surgery (SDC) | payer MEDICAID ==
[~2017-11-15 06:03] MED LIST: ANCEF/STERILE WATER 2 GM/20 ML 2 GM/20 ML SYRINGE IV NR; MARCAINE 0.5% INFILTRATI ONE; NACL 0.9% 1000 ML 1,000 ML IV SCH; NACL 0.9% IR ONE
[2017-11-15] MEDS ORDERED: NACL BACTERIOSTATIC INFILTRATI ONE (06:31)
[2017-11-15] MEDS ORDERED: DILAUDID IV PRN ×2 (07:06→10:58)
[2017-11-15] MEDS ORDERED: ZOFRAN IV PRN ×2 (07:06→10:58)
[2017-11-15 07:21] LABS: Calcium 9.6 mg/dL (8.4-10.2)
[2017-11-15] MEDS ORDERED: HEPARIN 10,000 UNITS/10 ML ONE (07:25)
[2017-11-15] MEDS ORDERED: NACL 0.9% 500 ML 500 ML ONE (07:25)
[2017-11-15] MEDS ORDERED: MARCAINE 0.5% 30 ML INFILTRATI ONE (07:26)
[2017-11-15] MEDS ORDERED: XYLOCAINE 1%/ EPI 1:100,000 INFILTRATI ONE (07:27)
[2017-11-15] MEDS ORDERED: SODIUM BICARBONATE ONE (07:28)
[2017-11-15 07:40] LABS: Basophils % (Auto) 0.8 % (0.0-1.8); Eosinophils # (Auto) 0.2 K/mm3 (0.0-0.4); Hematocrit 43.1 % (30.3-42.9); Hemoglobin 14.1 gm/dl (10.1-14.3); Lymphocytes # (Auto) 1.4 K/mm3 (1.2-5.4); Lymphocytes % (Auto) 27.2 % (13.4-35.0); Mean Corpuscular HGB Conc 33 % (30-34); Mean Corpuscular Hemoglobin 30 pg (28-32); Mean Corpuscular Volume 92 fl (79-97); Monocytes # (Auto) 0.7 K/mm3 (0.0-0.8); Monocytes % (Auto) 13.8 % (0.0-7.3); Platelet Count 222 K/mm3 (140-440); Red Cell Distribution Width 15.8 % (13.2-15.2)
--- NOTE | 2017-11-15 07:48 | Anesthesia Day of Surgery ---
Anesthesia Day of Surgery - Day of Surgery Patient Examined: Yes Patient H&P Reviewed: Yes Patient is NPO: Yes
--- NOTE | 2017-11-15 07:49 | Anesthesia Consultation ---
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 no deficts) Hx Psychiatric Problems: Yes - Gastrointestinal Hx Gastroesophageal Reflux Disease: Yes - Endocrine Hx Renal Disease: Yes Hx End Stage Renal Disease: Yes Hx Insulin Dependent Diabetes: Yes - Hematic Hx Anemia: Yes - Other Systems Hx Cancer: Yes (Skin Cancers)
[2017-11-15] MEDS ORDERED: NACL 0.9% 1000 ML 1,000 ML IV SCH (08:00)
[2017-11-15] MEDS ORDERED: SUBLIMAZE ONE (08:39)
[2017-11-15] MEDS ORDERED: DIPRIVAN 10 MG/ML IV ONE (08:39)
[2017-11-15] MEDS ORDERED: NEO SYNEPHRINE ONE (09:04)
[2017-11-15] MEDS ORDERED: ROBINUL ONE (09:04)
[2017-11-15] MEDS ORDERED: XYLOCAINE MPF 2% ONE (09:04)
[2017-11-15] MEDS ORDERED: HEPARIN 10,000 UNITS/10 ML IV ONE (09:10)
[2017-11-15] MEDS ORDERED: NACL 0.9% 500 ML IV ONE (09:10)
[2017-11-15] MEDS ORDERED: NACL 0.9% IR ONE (10:40)
[2017-11-15] MEDS ORDERED: ZOFRAN ONE (10:43)
[2017-11-15] MEDS ORDERED: MARCAINE 0.5% INFILTRATI ONE (10:47)
--- NOTE | 2017-11-15 10:59 | Post Operative Note ---
Pre-op diagnosis: end-stage renal disease on hemodialysis Post-op diagnosis: same Findings: Soft radial pulse post anastomosis. Good thrill and bruit in AV graft. Procedure: Creation of left arm brachial artery to axillary vein AV graft using PTFE 4-7 stepped graft. Anesthesia: other (LMA) Surgeon: CON SINGH Estimated blood loss: minimal Pathology: none Condition: stable Disposition: same day
--- NOTE | 2017-11-15 11:03 | Short Stay Summary ---
Short Stay Documentation Date of service: 11/15/17 Narrative H&P: Procedure admitted to the operating room for outpatient creation of AV graft in the left arm - History H&P: obtained from office - Allergies and Medications Current Medications: Allergies No Known Allergies Allergy (Verified 11/13/17 14:57) Home Medications Medication Instructions Recorded Confirmed Last Taken Type Aspirin [Aspirin TAB] 325 mg PO QDAY #30 tablet 09/11/17 11/15/17 11/13/17 Rx Metoprolol [Lopressor TAB] 12.5 mg PO BID #60 tablet 09/11/17 11/13/17 11/14/17 08:00 Rx Pravastatin [Pravachol] 40 mg PO QHS #30 tablet 09/11/17 11/13/17 11/14/17 Rx amLODIPine [Norvasc] 10 mg PO QDAY #30 tablet 09/11/17 11/13/17 11/14/17 12:00 Rx Lasix 80 mg PO DAILY 11/01/17 11/13/17 11/14/17 History Vitamin D (Nf) 1,000 mg PO DAILY 11/01/17 11/13/17 11/14/17 History Active Medications Hydromorphone HCl (Dilaudid) 0.25 mg IV Q10MIN PRN PRN Reason: Pain, Moderate (4-6) Stop: 11/15/17 15:00 Hydromorphone HCl (Dilaudid) 0.25 mg IV Q10MIN PRN PRN Reason: Pain, Moderate (4-6) Cefazolin Sodium (Ancef/Sterile Water 2 Gm/20 Ml) 2 gm in 20 mls @ 80 mls/hr IV PREOP NR; Protocol Stop: 11/15/17 23:59 Sodium Chloride (Nacl 0.9% 1000 Ml) 1,000 mls @ 42 mls/hr IV DIRECT DARSHANA Last Admin: 11/15/17 06:50 Dose: 42 mls/hr Sodium Chloride (Nacl 0.9% 1000 Ml) 1,000 mls @ 75 mls/hr IV DIRECT DARSHANA Ondansetron HCl (Zofran) 4 mg IV ONCE PRN PRN Reason: Nausea And Vomiting Stop: 11/15/17 13:00 Ondansetron HCl (Zofran) 4 mg IV ONCE PRN PRN Reason: Nausea And Vomiting - Brief post op/procedure progress note Date of procedure: 11/15/17 Pre-op diagnosis: end-stage renal disease on hemodialysis Post-op diagnosis: same Procedure: Creation of AV graft left brachial axillary Anesthesia: other (LMA) Findings: Thrill and bruit in graft. Palpable radial pulse. Surgeon: CON SINGH Estimated blood loss: minimal Pathology: none Condition: stable - Disposition Condition at discharge: Stable Disposition: DC-01 TO HOME OR SELFCARE - Discharge Diagnoses (1) Diabetes Status: Chronic Qualifiers: Diabetes mellitus type: type 2 Diabetes mellitus prison insulin use: without termite control servicer use Diabetes mellitus complication status: with kidney complications Diabetes mellitus complication detail: with chronic kidney disease Chronic kidney disease stage: on chronic dialysis Qualified Code(s) : E11.22 - Type 2 diabetes mellitus with diabetic chronic kidney disease; N18.6 - End stage renal disease; Z99.2 - Dependence on renal dialysis (2) ESRD (end stage renal disease) Status: Chronic Short Stay Discharge Plan Activity: advance as tolerated Weight Bearing Status: Full Weight Bearing Diet: renal Wound: keep clean and dry Special Instructions: no heavy lifting Follow up with: SAIRA ONOFRE MD [Primary Care Provider] - 7 Days CON SINGH MD [Staff Physician] - 14 Days CHRISTAL TORRES MD [Staff Physician] - 14 Days Prescriptions: HYDROcodone/APAP 5-325 [[place] 5/325] 1 each PO Q4HR PRN #20 tablet PRN Reason: Pain
--- NOTE | 2017-11-15 11:10 | Operative Report ---
Operative Report Operative Report: Date of procedure: 11/15/2017 Pre-operative diagnosis: End-stage renal disease on hemodialysis Post-operative diagnosis: Same Procedure name(s): Creation of left arm brachial artery to axillary vein hemodialysis access graft using 4-7 mm stepped propaten Surgeon: Ezio Orta MD Manual Writer: None Anesthesia: LMA EBL: Minimal Specimen(s): None Complications: None Findings: Good brachial artery inflow with soft vessel. Good thrill and bruit in graft. Adequate axillary vein. Soft palpable radial pulse and good palmar arch by Doppler. Procedure: Patient in the supine position with the left arm extended the entire extremity is prepped and draped using standard sterile technique. Through anesthetized skin longitudinal incision was made over the brachial pulse just above the antecubital fossa and carried down through the subcutaneous tissue. The brachial artery was identified and mobilized for several centimeters and encircled using vessel loops. Attention was then turned to the axilla where again a longitudinal incision was made through anesthetized skin and carried down through subcutaneous tissue until the axillary vein was identified and mobilized for several centimeters. Attention was then again and turned to the brachial incision with artery was occluded and a longitudinal arteriotomy was then made. The 4 mm and of a propatent tapered PTFE graft was brought into the surgical field, beveled, and an end to side anastomosis was then created using 6 -0 Prolene suture and running technique. Prior to completion of the suture line antegrade and retrograde flushing was performed. Suture line was then completed, the graft controlled and flow was released back to the hand. A curved Maranda-Wick tunneling device was used to create a curvilinear subcutaneous tunnel from the axillary incision into the brachial incision. The graft was then attached and withdrawn in a nonrotational fashion. Axillary vein was then controlled and opened longitudinally and the graft was then trimmed to an appropriate length and configuration and sutured end to side fashion with 6-0 Prolene suture 4 needle technique. The graft was then released evacuating air. Flow was then released retrograde down the brachial vein and subsequently released to the shoulder. Hemostasis was excellent. Graft developed a very nice thrill and bruit. There was a strong ulnar pulse and palmar arch pulse dopplerable at the completion of the procedure. Hemostasis was adequate. The incisions were then blocked with Marcaine 0.5% plain and closed in layers using 3-0 Vicryl subcutaneous for Monocryl subcuticular. Skin was reapproximated with octylseal. Patient was then extubated and returned to the recovery room in stable condition having tolerated the procedure well. Sponge and needle counts were correct.
--- NOTE | 2017-11-15 12:41 | Post Anesthesia Evaluation ---
- Post Anesthesia Evaluation Patient Participated: Yes Airway Patent: Yes Stable Respiratory Function: Yes Nausea/Vomiting: No Temp > 96.8F: Yes Pain Manageable: Yes Adequeate Hydration: Yes Anesthesia Complications: No
[2017-11-15 12:47] VITALS: BP 136/59
== END 2017-11-15 12:53 | disposition home or self-care (01) ==
LOC: OR 06:03
PROVIDERS: ATTEND Surgery Vascular Surgery
DX: E11.22 Type 2 diabetes mellitus with diabetic chronic kidney disease (principal); I12.0 Hypertensive chronic kidney disease with stage 5 chronic kidney disease or end stage renal disease; N18.6 End stage renal disease; D63.1 Anemia in chronic kidney disease; E78.00 Pure hypercholesterolemia, unspecified; I25.10 Atherosclerotic heart disease of native coronary artery without angina pectoris; F41.9 Anxiety disorder, unspecified; K21.9 Gastro-esophageal reflux disease without esophagitis; E11.51 Type 2 diabetes mellitus with diabetic peripheral angiopathy without gangrene; I73.9 Peripheral vascular disease, unspecified; Z99.2 Dependence on renal dialysis; Z79.82 Long term (current) use of aspirin; Z79.899 Other long term (current) drug therapy; Z79.84 Long term (current) use of oral hypoglycemic drugs; Z86.73 Personal history of transient ischemic attack (TIA), and cerebral infarction without residual deficits; Z85.828 Personal history of other malignant neoplasm of skin; Z90.710 Acquired absence of both cervix and uterus; Z98.890 Other specified postprocedural states
CPT/HCPCS: 36415; 36821; 80048; 82962; 85025; C1768; J0690; J1644; J2370; J2405; J2704; J3010; J7030; J7040

== ENCOUNTER 2019-05-06 11:06 | Outpatient (CLI) | payer MEDICAID ==
[2019-05-06 11:36] LABS: Basophils % (Auto) 0.7 % (0.0-1.8); Eosinophils # (Auto) 0.1 K/mm3 (0.0-0.4); Eosinophils % (Auto) 1.2 % (0.0-4.3); Hematocrit 41.1 % (30.3-42.9); Hemoglobin 13.4 gm/dl (10.1-14.3); Lymphocytes # (Auto) 0.8 K/mm3 (1.2-5.4); Lymphocytes % (Auto) 18.1 % (13.4-35.0); Mean Corpuscular HGB Conc 33 % (30-34); Mean Corpuscular Volume 96 fl (79-97); Monocytes # (Auto) 0.4 K/mm3 (0.0-0.8); Monocytes % (Auto) 8.2 % (0.0-7.3); Platelet Count 220 K/mm3 (140-440); Red Blood Count 4.29 M/mm3 (3.65-5.03); Red Cell Distribution Width 14.2 % (13.2-15.2)
[2019-05-06 11:59] LABS: Alanine Aminotransferase 13 units/L (7-56); Albumin 4.2 g/dL (3.9-5); Chol/HDL Ratio 1.62 %; HDL Cholesterol 66 mg/dL (40-59); LDL Cholesterol,Direct 39 mg/dL (50-130)
[2019-05-06 12:01] LABS: Bilirubin,Direct < 0.2 mg/dL (0-0.2)
[2019-05-10 15:47] LABS: Vitamin D, 25-OH, D2 14 ng/mL
== END 2019-05-06 11:07 | disposition home or self-care (01) ==
LOC: LAB 11:06
PROVIDERS: ATTEND Internal Medicine
DX: Z13.21 Encounter for screening for nutritional disorder (principal); Z00.00 Encounter for general adult medical examination without abnormal findings; E11.22 Type 2 diabetes mellitus with diabetic chronic kidney disease; E78.2 Mixed hyperlipidemia; N18.6 End stage renal disease; E78.5 Hyperlipidemia, unspecified
CPT/HCPCS: 36415; 80061; 80076; 82306; 82607; 83036; 85025

== ENCOUNTER 2019-07-02 08:42 | Outpatient (CLI) | payer MEDICAID ==
--- NOTE | 2019-07-02 09:39 | XRay Report ---
CHEST 2 VIEWS INDICATION: R06.02 SHORTNESS OF BREATH. COMPARISON: 11/02/2017 and 09/13/2017 FINDINGS: Support devices: None. Heart: Within normal limits. Pulmonary vasculature: Normal. Lungs/pleura: Bibasal opacification with silhouetting of the diaphragm and blunting of the costophren ic angles is new compared to the last exam. There is also new lingular airspace disease with silhouet ting of the left heart border on the frontal view and lingular opacification on the lateral view. No pneumothorax. Additional findings: None. IMPRESSION: 1. Acute lingular pneumonia with consolidation. 2. Bibasal atelectasis and small pleural effusions. 3. No CHF. Signer Name: Luke Johnson MD Signed: 07/02/2019 9:35 AM Workstation Name: [id number]
--- NOTE | 2019-07-02 11:48 | Ultrasound Report ---
ULTRASOUND ABDOMEN, COMPLETE INDICATION: R10.9 UNSPECIFIED ABDOMINAL PAIN COMPARISON: None available. FINDINGS: Pancreas: Normal. Abdominal Aorta: Normal. IVC: Normal. Liver: There are a few small hepatic cysts, the largest measures 2 cm. Liver is otherwise unremarkabl e. Gallbladder: Cholelithiasis is noted. The largest gallstone measures 2.5 cm. Bile ducts: Normal. Common Bile Duct measures 2-3 mm. Right Kidney: Incidental small cysts. Cortex is mildly echogenic. Left Kidney: Incidental small cysts. The cortex is mildly echogenic. Spleen: Normal. Free fluid: None. Additional Findings: None. IMPRESSION: 1. Cholelithiasis, the largest stone measures 2.5 cm. There is no sonographic evidence of acute michelle cystitis. 2. Kidneys are somewhat small with increased echogenicity in the cortex. This can be seen in the sett ing of medical renal disease. 3. Incidental hepatic and renal cysts. Signer Name: Karsten Sanchez MD Signed: 07/02/2019 11:44 AM Workstation Name: [id number]
== END 2019-07-02 08:43 | disposition home or self-care (01) ==
LOC: XRAY 08:42
PROVIDERS: ATTEND Internal Medicine
DX: J90 Pleural effusion, not elsewhere classified (principal); J98.11 Atelectasis; K80.20 Calculus of gallbladder without cholecystitis without obstruction; K81.9 Cholecystitis, unspecified; J18.8 Other pneumonia, unspecified organism
CPT/HCPCS: 71046; 76700

== ENCOUNTER 2020-03-16 09:43 | Outpatient (CLI) | payer MEDICAID ==
[2020-03-16 16:04] LABS: Chol/HDL Ratio 1.79 %
== END 2020-03-16 09:44 | disposition home or self-care (01) ==
LOC: LAB 09:43
PROVIDERS: ATTEND Internal Medicine
DX: E78.2 Mixed hyperlipidemia (principal); E11.40 Type 2 diabetes mellitus with diabetic neuropathy, unspecified
CPT/HCPCS: 36415; 80061; 83036

== ENCOUNTER 2021-03-24 10:25 | Outpatient (CLI) | payer MEDICAID ==
[2021-03-24 11:20] LABS: Chol/HDL Ratio 1.5 %
== END 2021-03-24 10:26 | disposition home or self-care (01) ==
LOC: LAB 10:25
PROVIDERS: ATTEND Internal Medicine
DX: E11.40 Type 2 diabetes mellitus with diabetic neuropathy, unspecified (principal); E78.2 Mixed hyperlipidemia
CPT/HCPCS: 36415; 80061; 83036